=== PATIENT | male | born 1960 | race Caucasian/White ===

== ENCOUNTER → 2020-04-14 09:43 | Outpatient (CLI) | payer BC, SELFPAY ==
--- NOTE | ~2020-04-14 | XR_ITS ---
EXAMINATION: XR chest 2V 04/14/2020 09:58 INDICATION: Shortness of breath with exertion PROCEDURE: 2 view chest COMPARISON: No prior studies for comparison. FINDINGS: The lungs are clear. The cardiomediastinal silhouette is within normal limits. There are no pleural effusions. There is no pneumothorax suspected. IMPRESSION: 1: NO ACUTE CARDIOPULMONARY DISEASE. Reviewed, dictated and finalized at location A. BREAKER
== END ==
PROVIDERS: Visit Provider Pediatrics
DX: R06.02 Shortness of breath (principal)
CPT/HCPCS: 71046

== ENCOUNTER 2020-05-03 00:28 | Outpatient (CLI) | payer BC, SELFPAY ==
[2020-05-03 18:26] LABS: SARS-CoV-2 RNA PCR Negative
== END 2020-05-03 00:29 | disposition home or self-care (01) ==
LOC: ANHCOVIDDT 00:28
PROVIDERS: PCP Pediatrics; Visit Provider Surgery
DX: Z01.812 Encounter for preprocedural laboratory examination (principal); Z20.822 Contact with and (suspected) exposure to COVID-19; K42.9 Umbilical hernia without obstruction or gangrene
CPT/HCPCS: C9803; U0003; U0005

== ENCOUNTER 2020-05-06 00:39 | Day surgery (SDC) | payer BC, SELFPAY ==
[2020-04-28 14:22] VITALS: BMI 26.6
--- NOTE | 2020-05-06 08:01 | WPDHPUPDATE1 ---
History and Physical Update Update Date/Time: 05/06/20 08:01 History and Physical has been reviewed, including an updated exam of the patient. There are NO changes in the patient's condition. Risks, benefits, and alternatives have been discussed and questions answered. Patient agrees to proceed with procedure.
[2020-05-06] MEDS: LACTATED RINGERS 1,000 ML 30 ML IV CONT ×2 (09:30→12:55)
[2020-05-06] MEDS: KETOROLAC 15 MG/ML VIAL (*BKC) IV PUSH (09:58)
--- NOTE | 2020-05-06 10:51 | P.PNAN_ITS ---
Anes - Initial Pre Proc Eval Procedure: Operation Date: 05/06/20 10:30 Proposed Procedures p Umbilical Hernia Repair With Mesh - Maged Dickinson MD Date/Time: 05/06/20 10:51 Surgeon: Maged Dickinson MD Pre Op Diagnosis: Umbilical Hernia Patient Data Age: 59 Gender: M Height: 5 ft 6 in Weight: 75 kg Allergies Allergy/AdvReac Type Severity Reaction Status Date / Time Penicillins Allergy Unknown Hives Verified 04/28/20 14:27 Home Medications Medication Instructions Recorded Confirmed Type ascorbate calcium (vitamin C) 500 1,000 mg PO DAILY 04/20/20 05/06/20 History mg tablet famotidine 20 mg tablet 20 mg PO BID 04/20/20 05/06/20 History omega-3 fatty acids 1,000 mg 1,000 mg PO DAILY 04/20/20 05/06/20 History capsule calcium 500 mg PO DAILY 04/28/20 05/06/20 History cholecalciferol (vitamin D3) 100 mcg PO DAILY 04/28/20 05/06/20 History [Vitamin D3] Patient hx anesthesia problems: none Family hx anesthesia problems: none [facility] Past Medical History Medical History (Updated 04/22/20 @ 08:47 by July Cronin) GERD (gastroesophageal reflux disease) Surgical History Surgical History History of inguinal hernia repair, bilateral History of tonsillectomy Family History Family History Grandparent Diabetes mellitus Other Carcinoma of colon Social History Social History Smoking status: Never smoker Alcohol intake: current Living arrangements: with family Additional occupation/education comments: [employer] Spiritual care concerns: No Anes - Eval Final PreProcedure Day of Procedure 05/06/20 10:51 Patient weight: normal Heart: regular rate and rhythm Lungs: clear to auscultation Airway: Mallampati scale class II Neurological: alert and oriented Last oral intake: >/= 8 hours ASA classification: II Emergent: no Anesthetic plan: proceed Anesthesia type and monitoring: general GIVS and standard monitoring Informed Consent: The patient's anesthetic plan and its attendant risks and benefits were discussed with the patient/family/POA. Questions were solicited and answers provided to the satisfaction of the patient/family/POA.
[2020-05-06] MEDS: ACETAMINOPHEN 500 MG TABLET 1000 MG PO (10:55)
[2020-05-06] MEDS: ceFAZolin 2 GM/D5W 50 ML 2 GM/50 ML BAG IVPB (12:00)
--- NOTE | 2020-05-06 12:24 | SUR.OPER ---
Parietex Mesh [id number], Lot [id number], Exp 2024-11-06 Umbilical
[2020-05-06 12:55] VITALS: BP 124/85; PULSE 63; RESP 10
--- NOTE | 2020-05-06 13:22 | PM.PROC ---
Procedure Note - Detailed Date of procedure: 05/06/20 Pre-op diagnosis: Umbilical Hernia Umbilical hernia Post-op diagnosis: same Procedure performed: Umbilical hernia repair with 4.6 cm Parietex underlay mesh Description of procedure: Patient was taken to the operating room and IV sedation was administered. Prep and drape was carried out. The proposed incision along the upper margin of the umbilicus was marked on the skin. Local anesthetic was infiltrated into the skin and the deeper subcutaneous tissues. Incision was made and dissection was carried down through the skin and to the hernia sac. The sac was then dissected free from the umbilical skin and the surrounding subcutaneous tissues. It was dissected down to its neck. Additional local anesthetic was infiltrated into the neck and the fascia surrounding the neck of the hernia sac. The sac was then amputated at its neck. The subcutaneous was undermined around the hernia defect. Additional local was infiltrated around the fascia. I placed a finger inside the hernia defect and checked for any abdominal wall adhesions in the area. None were found. No other hernias were noted. A 4.6 cm Parietex apache was chosen. It was folded and placed in the defect. Once it symmetrically covered the defect, I placed cranial and caudal transfascial sutures of 0 Ethibond. These sutures were placed in such a fashion that, when tied, they would advance the edges of the hernia defect towards 1 another. These sutures were tied and had the desired effect. I then closed the hernia defect with [id number] mattress sutures of 0 Ethibond. The repair looked quite satisfactory. I then infiltrated additional local all around the areas of the repair. The umbilical skin was tacked to the fascia with 3 0 Vicryl suture. The subcutaneous was closed with 3 0 Vicryl. Subcuticular interrupted 4 O Vicryl skin stitches were placed. The skin was then closed with running 4 0 Monocryl subcuticular suture. Wound was dressed with Exofin surgical adhesive. The patient was awakened and taken to recovery in good condition. Counts were correct x2. Implants: 4.6 cm Parietex hernia mesh Anesthesia: MAC and local (0.5% Marcaine with Exparel) Surgeon: Maged Dickinson MD Learning Center Instructor: Dennise MADERA Estimated blood loss (mL): 5 Drains: No Packing: No Pathology: none sent Complications: None Condition: stable Disposition: same day Findings: 9 millimeter hernia defect
[2020-05-06 13:25] VITALS: BP 108/76; PULSE 57; RESP 14
[2020-05-06 13:55] VITALS: BP 108/76; PULSE 55; RESP 14
[2020-05-06 14:20] VITALS: BP 120/72; PULSE 50; RESP 16
[2020-05-06 14:48] VITALS: BP 120/72; PULSE 50; RESP 16
== END 2020-05-06 15:00 | disposition home or self-care (01) ==
PROVIDERS: PCP Pediatrics; Visit Provider Surgery
PROC: (CPT 49585; principal; 2020-05-06 10:30)
DX: K42.9 Umbilical hernia without obstruction or gangrene (principal); K21.9 Gastro-esophageal reflux disease without esophagitis
CPT/HCPCS: 49585; A9270; C1781; C9290; J0690; J1100; J1885; J2250; J2405; J2704; J3010; J7120

== ENCOUNTER 2020-05-22 17:43 | Inpatient (IN) | payer BC, SELFPAY ==
--- NOTE | ~2020-05-22 | XR_ITS ---
XR abdomen/kub 1V DATE: 05/24/2020 08:15 INDICATION: Abdominal pain, no bowel movements. TECHNIQUE: Portable supine AP view COMPARISON: May 23, 2020 portable AP view at 0749 hours May 22, 2020 CT abdomen pelvis FINDINGS: There is diminished small bowel gas and no evidence of small or large bowel dilatation sinc e 05/23/2020. NG tube in gastric fundus. The psoas shadows are intact. No visceromegaly is evident. Postoperative change of reported left inguinal hernia repair. Several bone islands of the right ilium and acetabulum. IMPRESSION: NG tube in gastric fundus; no bowel obstruction is evident Reviewed, dictated and finalized at Location A. Reviewed, dictated and finalized at location A. OVEMENT ANALYST
--- NOTE | ~2020-05-22 | XR_ITS ---
EXAMINATION: XR UGI water soluble w sbs DATE: 05/24/2020 10:53 INDICATION: Small bowel obstruction TECHNIQUE: 400 cc of Omnipaque 350 water-soluble contrast was injected through the nasogastric tube.. Conventional supine abdomen radiographs and fluoroscopy of the stomach and small bowel were performe d. Fluoroscopy exposure time was 1.7 minutes. The DAP for this procedure was 40.505 Gycm2. COMPARISON: CT, 05/22/2020; 05/24/2020 FINDINGS: UPPER GASTROINTESTINAL SERIES: There is no identified hiatal hernia. The stomach shows a normal folding pattern.] SMALL BOWEL SERIES: Transit time from the stomach to proximal colon was approximately 45 minutes. There is normal caliber and mucosal fold pattern throughout the small bowel. Terminal ileum is normal. No tethering or abnor mal mass effect observed upon the small bowel with real-time fluoroscopy. IMPRESSION: 1. Unremarkable upper GI and small bowel follow-through. Reviewed, dictated and finalized at location A. ING CARHOP
--- NOTE | ~2020-05-22 | XR_ITS ---
EXAMINATION: XR abdomen NG/feed tube insert DATE: 05/22/2020 21:35 INDICATION: Nasogastric tube placement TECHNIQUE: A supine view of the abdomen and lower chest was obtained for evaluation of feeding tube placement. COMPARISON: None. FINDINGS: Nasogastric tube tip in proximal side port in the body of the stomach. Again seen are multiple dilate d gas-filled loops of small bowel project over the central abdomen consistent with small bowel obstru ction. Mild left basilar atelectasis. IMPRESSION: 1. Nasogastric tube in the stomach. 2. Small bowel obstruction. Reviewed, dictated and finalized at location A. HEEL FINISHER
--- NOTE | ~2020-05-22 | XR_ITS ---
XR abdomen/kub 1V DATE: 05/23/2020 07:48 INDICATION: Small bowel obstruction TECHNIQUE: Portable supine AP view on May 23, 2020 at 0749 hours COMPARISON: May 22, 2020 portable AP view at 2138 hours for NG tube placement May 22, [address] abdomen pelvis FINDINGS: There is radiopaque contrast material within the urinary bladder. An NG tube is noted in the gastric fundus. No dilated small or large bowel segments are noted. The psoas shadows are intact. No visceromegaly is evident. Surgical clips related to prior left inguinal hernia repair are noted. IMPRESSION: No small bowel abnormal dilatation is evident NG tube in gastric fundus Reviewed, dictated and finalized at Location A. Reviewed, dictated and finalized at location A. MECHANIC
--- NOTE | ~2020-05-22 | CT_ITS ---
EXAMINATION: CT abdomen pelvis w con DATE: 05/22/2020 20:18 INDICATION: Mid abdominal pain. Hernia repair one week prior. TECHNIQUE: Computed tomography (CT) of the abdomen and pelvis was performed with 100 mL Omnipaque-350 intravenous contrast. Automated exposure control and iterative reconstruction technique were employe d. The dose-length product was 387.26 mGy-cm. COMPARISON: None FINDINGS: Mild dependent atelectasis in the bilateral lower lobes. Heart size is normal. No pericardial or pleu ral effusion. Couple low-attenuation hepatic lesions, the larger measuring 2.4 cm at the posterior me dial dome of liver near the inferior vena cava. The second measuring 1.4 cm near the ligamentum teres . Gallbladder, spleen, pancreas, bilateral adrenal glands and kidneys are normal. There are multiple loops of dilated fluid-filled loops of small bowel measuring up to 3.5 cm diameter which extend to an abrupt transition point to decompressed bowel in the left abdomen where the bowel undergoes a sharp 180 degree turn. This is located on axial series 3, image 96 and sagittal series 602, image 100. The more distal small bowel is decompressed extending to the cecum. Colon and appendix are normal. Small amount of ascites scattered throughout the abdomen and pelvis. Prostatomegaly. Bladder is unremarkabl e. No abscess or free intraperitoneal gas. Edema and stranding in the region of the umbilicus where c hange of a likely recent umbilical hernia mesh repair. Additional likely more chronic postoperative c hanges of left inguinal hernia repair with mesh and multiple surgical clips but no significant strand ing. Small fat-containing right inguinal hernia. No pathologically enlarged abdominal or pelvic lymph adenopathy. Mild disc height loss with vacuum phenomena at L5-S1 with 3 mm retrolisthesis of L5 on S1 . A few small bone islands in the lower lumbar spine, right ilium and bilateral femoral heads. IMPRESSION: 1. Small bowel obstruction likely related to adhesions with transition point at a sharp angulation in the course of the small bowel mid left abdomen. 2. Postoperative change of likely recent umbilical hernia mesh repair and likely earlier left inguina l hernia mesh repair. 3. Couple nonspecific low-attenuation hepatic lesions the larger measuring 2.4 cm which in the absenc e of known liver disease or primary malignancy or likely benign with most likely differential includi ng hemangioma or focal nodular hyperplasia. Recommend further evaluation with pre and postcontrast MR I. 4. Small amount of likely reactive ascites in the abdomen and pelvis. 5. Prostatomegaly. Reviewed, dictated and finalized at location A. N CLERK IMPRESSION: 1. Small bowel obstruction likely related to adhesions with transition point at a sharp angulation in the course of the small bowel mid left abdomen. 2. Postoperative change of likely recent umbilical hernia mesh repair and likel y earlier left inguinal hernia mesh repair. 3. Couple nonspecific low-attenuation hepatic lesions the larger measuring 2.4 cm which in the absence of known liver disease or primary malignancy or likely benign with most likely differential including hemangioma or focal nodular hype rplasia. Recommend further evaluation with pre and postcontrast MRI. 4. Small amount of likely reactive ascites in the abdomen and pelvis. 5. Prostatomegaly.
[2020-05-22 17:47] VITALS: BP 138/91; PULSE 88; RESP 18; TEMP 36.6; O2SAT 99
[2020-05-22] MEDS: ONDANSETRON INJ 4 MG/2 ML VIAL IV PUSH (18:58)
[2020-05-22] MEDS: FAMOTIDINE 20 MG/2 ML VIAL IV PUSH (18:59)
[2020-05-22] MEDS: MORPHINE SULFATE (*CRX) 4 MG/ML INJ IV PUSH ×2 (19:00→21:17)
[2020-05-22] MEDS: SODIUM CHLORIDE 0.9% IV 1,000 ML 999 ML IV CONT (19:00)
--- NOTE | 2020-05-22 19:02 | ED.GENADULT ---
HPI - General Adult General Chief complaint: Abdominal Pain <Pablo Magallon PA-C - Last Filed: 05/22/20 21:40> Stated complaint: abdominal pain <Pablo Magallon PA-C - Last Filed: 05/22/20 21:40> Time Seen by Provider: 05/22/20 18:03 <Pablo Magallon PA-C - Last Filed: 05/22/20 21:40> Source: patient, family and old records reviewed <Pablo Magallon PA-C - Last Filed: 05/22/20 21:40> Mode of arrival: ambulatory <Pablo Magallon PA-C - Last Filed: 05/22/20 21:40> Limitations: no limitations <Pablo Magallon PA-C - Last Filed: 05/22/20 21:40> History of Present Illness HPI narrative: Patient is a 59-year-old male who presents to emergency department for evaluation of abdominal pain in the upper abdomen that began today patient had dinner last night has been fine is 2 weeks umbilical hernia repair by Dr. Dickinson Patient Has Seen Doctor , Sunday and had been fine at that time but this morning began to have the pain which has persisted also had associated nausea and feels distended patient notes he has been having bowel movements and urinating without difficulty and denies any URI symptoms <Pablo Magallon PA-C - Last Filed: 05/22/20 21:40> Related Data Home medications: Home Medications Medication Instructions Recorded Confirmed ascorbate calcium (vitamin C) 500 1,000 mg PO DAILY 04/20/20 05/22/20 mg tablet famotidine 20 mg tablet 20 mg PO BID 04/20/20 05/22/20 omega-3 fatty acids 1,000 mg 1,000 mg PO DAILY 04/20/20 05/22/20 capsule calcium 500 mg PO DAILY 04/28/20 05/22/20 cholecalciferol (vitamin D3) 100 mcg PO DAILY 04/28/20 05/22/20 [Vitamin D3] aspirin 81 mg PO DAILY 05/22/20 05/22/20 <SÁNCHEZ Stephenson Last Filed: 05/22/20 21:40> Allergies/adverse reactions: Allergies Allergy/AdvReac Type Severity Reaction Status Date / Time Penicillins Allergy Unknown Hives Verified 05/22/20 23:19 <Pablo Magallon PA-C - Last Filed: 05/22/20 21:40> Review of Systems Review of Systems: All systems reviewed & are unremarkable except as noted in HPI and below <Pablo Magallon PA-C - Last Filed: 05/22/20 21:40> PMFSH Past Medical History Medical History: Medical History GERD (gastroesophageal reflux disease) <Pablo Magallon PA-C - Last Filed: 05/22/20 21:40> Surgical History Surgical History: Surgical History H/O umbilical hernia repair History of inguinal hernia repair, bilateral History of tonsillectomy <Pablo Magallon PA-C - Last Filed: 05/22/20 21:40> Family History Family History: Family History Grandparent Diabetes mellitus Other Carcinoma of colon <Pablo Magallon PA-C - Last Filed: 05/22/20 21:40> Social History Social History: Social History Smoking status: Never smoker Alcohol intake: current Drinks per week: 0 Substance use: never Substance use type: does not use Last use: drinks very rarely Additional occupation/education comments: [employer] Gender identity (if verbalized by the patient): Male Spiritual care concerns: No <Pablo Magallon PA-C - Last Filed: 05/22/20 21:40> Exam Narrative: Exam Narrative: GENERAL: Well-appearing, well-nourished, and in no acute distress. HEAD: Normocephalic, atraumatic. EYES: PERRLA and EOMI. ENT: Nares clear, no rhinorrhea or epistaxis. Mucous membranes moist. CHEST: Clear to auscultation. No respiratory distress. No wheezes rales or rhonchi HEART: Regular rate and rhythm. No murmur heard. Normal peripheral pulses. ABDOMEN: Soft, generalized tenderness, distended EXTREMITIES: Normal range of motion. No edema. SKIN: Warm, dry, no rash. NEURO: No focal deficits. Alert and oriented x3. Cranial nerves
[2020-05-22 19:04] VITALS: BP 130/84; PULSE 80; RESP 20; O2SAT 97
[2020-05-22 19:12] LABS: Basophils Absolute Auto 0.1 K/mm3 (0.0-0.1); Basophils Percent Auto 0.5 % (0.2-1.2); Eosinophils Absolute Auto 0.2 K/mm3 (0-0.3); Eosinophils Percent Auto 1.2 % (0-4.4); Hematocrit 45.2 % (42.0-52.0); Immature Granulocyte Absolute 0.05 K/mm3 (0.00-0.031); Immature Granulocyte Percent A 0.4 % (0-0.5); Lymphocytes Absolute Auto 1.27 K/mm3 (0.9-3.2); Lymphocytes Percent Auto 9.8 % (18.3-44.2); Mean Corpuscular HGB Conc 35.4 g/dl (32-36); Mean Corpuscular Hemoglobin 32.7 pg (26-34); Mean Corpuscular Volume 92.2 fl (80-100); Mean Platelet Volume 10.2 fl (7.4-10.4); Monocytes Absolute Auto 0.9 K/mm3 (0.1-0.6); Neutrophils Absolute Auto 10.5 K/mm3 (1.3-6.7); Neutrophils Percent Auto 81.1 % (45.5-73.1); Platelet Count Result 247 k/mm3 (150-375); Red Cell Distribution Width 12.2 % (11.5-14.5)
[2020-05-22 19:23] LABS: Lactic Acid Reflex 0.9 mmol/L (0.7-2.1)
[2020-05-22 19:24] LABS: Alanine Aminotransferase 23 U/L (4-50); Albumin Level 4.2 g/dL (3.5-5.1); Alkaline Phosphatase 77 U/L (38-126); Anion Gap 5 mmol/L (8-16); Aspartate Amino Transferase 29 U/L (17-59); Bilirubin,Total 0.6 mg/dL (0.2-1.3); Blood Urea Nitrogen 15 mg/dL (9-20); Calcium 9.9 mg/dL (8.4-10.2); Carbon Dioxide 30 mmol/L (22-30); Chloride 104 mmol/L (98-107); Estimated CRCL calculation 53 ml/min; Estimated Glomerular Filt Rate > 60; Glucose 102 mg/dL (75-110); Lipase 48 U/L (23-300); Sodium 139 mmol/L (137-145)
[2020-05-22 19:43] LABS: Add Urine Microscopic? YES; Amorphous Sediment Urine Moderate; Appearance Urine Cloudy (Clear); Bilirubin Urine Negative (Negative); Blood Urine Negative (Negative); Color Urine Yellow (Yellow); Glucose Urine UA Negative (Negative); Ketones Urine Trace mg/dL (Negative); Leukocyte Esterase Ur Negative LEU/UL (Negative); Nitrate Urine Negative (Negative); Protein Urine 1+ mg/dL (Negative); RBC Urine 0-2 /hpf (0-2); Specific Grav Ur 1.019 (1.001-1.035); Urobilinogen Urine Negative mg/dL (<2.0)
[2020-05-22] MEDS: LORazepam INJ (*CRX) 2 MG/ML VIAL 1 MG IV PUSH (21:29)
[2020-05-22 21:32] VITALS: BP 132/94; PULSE 108; RESP 20; O2SAT 96
[2020-05-22 23:01] VITALS: BP 124/78; PULSE 98; RESP 20; TEMP 36.7; O2SAT 96
[2020-05-22 23:13] VITALS: BP 120/81; PULSE 103; RESP 18; TEMP 36.8; O2SAT 93; BMI 25.7
[2020-05-22] MEDS: LACTATED RINGERS 1,000 ML 125 ML IV CONT (23:25)
--- NOTE | 2020-05-22 23:29 | ADMGEN ---
This patient, Zay Fisher, was admitted to 2 Medical Room 246-01 @ 2300 05/22/2020. Patient/family oriented to hospital policies and general routines including ID bracelet, bed and alarms, visiting hours, pain management, procedures, bathroom and other care routines, personal items, smoking policy, room service/diet, and visiting hours. Information on how to activate the Rapid Response Team has been discussed. Patient/Family are encouraged to report perceived risks to care and to ask questions if they do not understand what they are told or what they should do.
[2020-05-23 04:00] VITALS: BP 123/79; PULSE 93; RESP 16; TEMP 36.6; O2SAT 95
[2020-05-23 05:04] LABS: Basophils Absolute Auto 0.1 K/mm3 (0.0-0.1); Basophils Percent Auto 0.4 % (0.2-1.2); Eosinophils Absolute Auto 0.1 K/mm3 (0-0.3); Eosinophils Percent Auto 0.5 % (0-4.4); Hematocrit 41.1 % (42.0-52.0); Hemoglobin 14.2 g/dL (14.0-18.0); Immature Granulocyte Absolute 0.04 K/mm3 (0.00-0.031); Immature Granulocyte Percent A 0.3 % (0-0.5); Lymphocytes Absolute Auto 1.15 K/mm3 (0.9-3.2); Lymphocytes Percent Auto 9.9 % (18.3-44.2); Mean Corpuscular HGB Conc 34.5 g/dl (32-36); Mean Corpuscular Hemoglobin 31.9 pg (26-34); Mean Corpuscular Volume 92.4 fl (80-100); Mean Platelet Volume 10.1 fl (7.4-10.4); Monocytes Absolute Auto 0.8 K/mm3 (0.1-0.6); Monocytes Percent Auto 7.3 % (2.6-8.5); Neutrophils Absolute Auto 9.4 K/mm3 (1.3-6.7); Neutrophils Percent Auto 81.6 % (45.5-73.1); Platelet Count Result 243 k/mm3 (150-375); Red Blood Count 4.45 M/mm3 (4.6-6.20); Red Cell Distribution Width 12.1 % (11.5-14.5); White Blood Count 11.6 K/mm3 (4.5-10.0)
[2020-05-23 05:16] LABS: Anion Gap 4 mmol/L (8-16); Blood Urea Nitrogen 14 mg/dL (9-20); Calcium 9.3 mg/dL (8.4-10.2); Carbon Dioxide 30 mmol/L (22-30); Chloride 105 mmol/L (98-107); Estimated CRCL calculation 53 ml/min; Estimated Glomerular Filt Rate > 60; Glucose 122 mg/dL (75-110); Potassium 4.5 mmol/L (3.4-5.0); Sodium 139 mmol/L (137-145)
[2020-05-23] MEDS: MORPHINE SULFATE (*CRX) 4 MG/ML INJ IV PUSH (05:54)
[2020-05-23 09:56] VITALS: BP 122/80; PULSE 92; RESP 14; TEMP 36.4; O2SAT 94
[2020-05-23] MEDS: ENOXAPARIN 40 MG/0.4 ML SYRINGE SUB-Q (09:58)
[2020-05-23] MEDS: FAMOTIDINE 20 MG/2 ML VIAL IV PUSH ×2 (09:58→20:40)
[2020-05-23] MEDS: LACTATED RINGERS 1,000 ML 125 ML IV CONT ×2 (09:58→17:51)
[2020-05-23] MEDS: KETOROLAC 30 MG/ML VIAL (*BKC) IV PUSH (10:15)
--- NOTE | 2020-05-23 10:23 | PM.IMHP ---
H&P: HPI History of Present Illness Date/Time: 05/23/20 10:23 Chief Complaint: abdominal pain and nausea Narrative: Zay Fisher is a 59 year old male whom I know from repair of umbilical hernia on May 06, 2020. This was an outpatient surgery and the hernia was repaired with 4.6 cm Parietex underlay mesh. The patient did well after surgery and in fact, I had seen him in the office on May 18, 4 days ago. He was doing quite well at is office visit. However, after dinner night before last, he started experiencing abdominal pain in the upper abdomen. This got worse yesterday and was associated with nausea and a feeling of abdominal distension. He came to the emergency room last night. Evaluation there showed a distended tender abdomen. He had an elevated white blood cell count. His vital signs were stable and he had no fever. His CT scan, however, showed a small-bowel obstruction. The transition point was in the left mid abdomen and did not appear to be associated with his hernia repair. He had a nasogastric tube placed and was admitted. He received IV fluids and analgesics. He feels much better this morning. He has a headache and a sore throat, but his abdominal pain is gone. Review of Systems Review of Systems: All systems reviewed & are unremarkable except as noted in HPI and below Constitutional: Constitutional: Denies body ache(s), Denies chills, Denies fever(s) and Reports headache(s) ENT: Reports dry mouth, Reports headache(s) and Reports sore throat Cardiovascular: Cardiovascular: Denies chest pain and Denies dyspnea Respiratory: Respiratory: Denies cough and Denies dyspnea Gastrointestinal: Gastrointestinal: Reports abdominal pain ( Improved, essentially resolved), Denies change in bowel habits, Reports GI cramping ( improved), Reports early satiety, Reports nausea and Denies vomiting PMFSH Past Medical History Medical History GERD (gastroesophageal reflux disease) Surgical History Surgical History H/O umbilical hernia repair History of inguinal hernia repair, bilateral History of tonsillectomy Family History Family History Grandparent Diabetes mellitus Other Carcinoma of colon Social History Social History Smoking status: Never smoker Alcohol intake: current Drinks per week: 0 Substance use: never Substance use type: does not use Last use: drinks very rarely Additional occupation/education comments: [employer] Gender identity (if verbalized by the patient): Male Spiritual care concerns: No Meds Home Medications and Allergies Home Medications Medication Instructions Recorded Confirmed Type ascorbate calcium (vitamin C) 500 1,000 mg PO DAILY 04/20/20 05/22/20 History mg tablet famotidine 20 mg tablet 20 mg PO BID 04/20/20 05/22/20 History omega-3 fatty acids 1,000 mg 1,000 mg PO DAILY 04/20/20 05/22/20 History capsule calcium 500 mg PO DAILY 04/28/20 05/22/20 History cholecalciferol (vitamin D3) 100 mcg PO DAILY 04/28/20 05/22/20 History [Vitamin D3] aspirin 81 mg PO DAILY 05/22/20 05/22/20 History Allergies Allergy/AdvReac Type Severity Reaction Status Date / Time Penicillins Allergy Unknown Hives Verified 05/22/20 23:19 Vital Signs Vital Signs - 24 hr 05/22/20 17:47 05/22/20 19:04 05/22/20 21:32 Temperature 36.6 C Pulse Rate 88 80 108 H Respiratory Rate 18 20 20 Blood Pressure 138/91 H 130/84 132/94 H Pulse Oximetry 99 97 96 05/22/20 23:01 05/22/20 23:13 05/23/20 04:00 Temperature 36.7 C 36.8 C 36.6 C Pulse Rate 98 103 H 93 Respiratory Rate 20 18 16 Blood Pressure 124/78 120/81 123/79 Pulse Oximetry 96 93 95 05/23/20 09:56 Temperature 36.4 C Pulse Rate 92 Respiratory Rate 14 Blood Pressure 122/80
[2020-05-23 14:00] VITALS: BP 135/77; PULSE 89; RESP 14; TEMP 36.2; O2SAT 92
[2020-05-23 20:00] VITALS: PULSE 89; RESP 14; O2SAT 92
[2020-05-23] MEDS: PHENOL/SOD PHENO SPRAY CHERRY (*BKC) 1 SPRAY MUCOUS MEM (20:40)
[2020-05-23 22:00] VITALS: BP 137/81; PULSE 83; RESP 16; TEMP 36.7; O2SAT 95
[2020-05-24 01:51] VITALS: BP 143/82; PULSE 81; RESP 16; TEMP 36.4; O2SAT 92
[2020-05-24] MEDS: LACTATED RINGERS 1,000 ML 125 ML IV CONT (02:00)
[2020-05-24 05:41] LABS: Hematocrit 38.4 % (42.0-52.0); Hemoglobin 13.3 g/dL (14.0-18.0); Mean Corpuscular HGB Conc 34.6 g/dl (32-36); Mean Corpuscular Hemoglobin 31.8 pg (26-34); Mean Corpuscular Volume 91.9 fl (80-100); Mean Platelet Volume 10.5 fl (7.4-10.4); Platelet Count Result 190 k/mm3 (150-375); Red Blood Count 4.18 M/mm3 (4.6-6.20); Red Cell Distribution Width 11.9 % (11.5-14.5); White Blood Count 9.7 K/mm3 (4.5-10.0)
[2020-05-24 05:46] VITALS: BP 140/78; PULSE 80; RESP 16; TEMP 36.8; O2SAT 93
[2020-05-24 06:12] LABS: Chloride 104 mmol/L (98-107); Potassium 3.4 mmol/L (3.4-5.0); Sodium 138 mmol/L (137-145)
[2020-05-24 06:17] LABS: Anion Gap 3 mmol/L (8-16); Blood Urea Nitrogen 13 mg/dL (9-20); Calcium 8.5 mg/dL (8.4-10.2); Carbon Dioxide 31 mmol/L (22-30); Estimated CRCL calculation 53 ml/min; Estimated Glomerular Filt Rate > 60; Glucose 90 mg/dL (75-110)
[2020-05-24] MEDS: KCL 40 MEQ/D5/0.9% SOD CHL 1,000 ML 100 ML IV CONT (08:47)
[2020-05-24] MEDS: FAMOTIDINE 20 MG/2 ML VIAL IV PUSH (08:48)
[2020-05-24] MEDS: ENOXAPARIN 40 MG/0.4 ML SYRINGE SUB-Q (08:48)
--- NOTE | 2020-05-24 08:48 | PM.PNGS ---
Progress Note: A&P Assessment and Plan (1) Small bowel obstruction due to adhesions: Code(s): K56.50 - Intestinal adhesions [bands], unspecified as to partial versus complete obstruction Status: Acute Assessment and Plan: No pain again this morning. Abdomen feels flat and exam is negative. Will proceed with Gastrografin upper GI small-bowel follow-through as planned. (2) Headache: Qualifiers: Headache type: unspecified Headache chronicity pattern: acute headache Intractability: not intractable Qualified Code(s): R51.9 - Headache, unspecified Code(s): R51.9 - Headache, unspecified Status: Acute Assessment and Plan: Resolved (3) H/O umbilical hernia repair: Code(s): Z98.890 - Other specified postprocedural states; Z87.19 - Personal history of other diseases of the digestive system Status: Acute Assessment and Plan: repair intact. Subjective Subjective Date/Time Seen: 05/24/20 08:48 Patient reports: no new complaints, feels better, pain is less, no flatus and no bowel movement Review of Systems Review of Systems: All systems reviewed & are unremarkable except as noted in HPI and below Constitutional: Constitutional: Denies headache(s) Cardiovascular: Cardiovascular: Denies chest pain and Denies dyspnea Respiratory: Respiratory: Denies cough and Denies dyspnea Gastrointestinal: Gastrointestinal: Reports as per HPI, Denies abdominal pain, Denies bloating, Denies heartburn and Denies nausea Neurologic: Denies confusion and Denies headache(s) Exam Const: General: comfortable and no acute distress; No confusion Orientation/consciousness: patient oriented x3 and No confusion GI: Inspection: non-distended and incision ( Continues to heal well) GI Palp: Yes Soft to palpation, No Tenderness to palpation present (GI), No Guarding due to palpation present (GI), No Hernia present, No Palpable mass present and No Rebound tenderness present Auscultation: normal bowel sounds Neuro: General: patient oriented x3, no focal motor deficits and No confusion Extrem: General: no calf tenderness and no edema Psych: Affect: normal affect Insight: Good insight present (Psych) Judgement: Good judgement present (Psych) Objective Data Vital Signs Vital Signs: Vital Signs - 24 hr 05/23/20 09:56 05/23/20 14:00 05/23/20 20:00 Temperature 36.4 C 36.2 C L Pulse Rate 92 89 89 Respiratory Rate 14 14 14 Blood Pressure 122/80 135/77 Pulse Oximetry 94 92 92 05/23/20 22:00 05/24/20 01:51 05/24/20 05:46 Temperature 36.7 C 36.4 C 36.8 C Pulse Rate 83 81 80 Respiratory Rate 16 16 16 Blood Pressure 137/81 143/82 H 140/78 Pulse Oximetry 95 92 93 Intake/Output Intake/Output: Intake & Output 05/21/20 05/22/20 05/23/20 05/24/20 23:59 23:59 23:59 23:59 Intake Total 1000 2009 1359 Output Total 1400 825 Balance 1000 610 535 Meds/Results Medications: Active Medications Generic Name Dose Route Start Last Admin Trade Name Freq PRN Reason Stop Dose Admin Diphenhydramine HCl 25 mg 05/23/20 10:20 Diphenhydramine Hcl Inj 50 Mg/Ml Vial IV PUSH Q6H PRN Itching Enoxaparin Sodium 40 mg 05/23/20 09:00 05/24/20 08:48 Enoxaparin 40 Mg/0.4 Ml Syringe SUB-Q 40 mg DAILY ALLYSON Administration Famotidine 20 mg 05/23/20 09:00 05/24/20 08:48 Famotidine 20 Mg/2 Ml Vial IV PUSH 20 mg Q12HR ALLYSON Administration Ibuprofen 800 mg in 200 mls @ 400 mls/hr 05/23/20 10:20 Caldolor 800 Mg/200 Ml IVPB Q6H PRN Pain Rated 1-3 Potassium Chloride/Dextrose/Sod Cl 1,000 mls @ 100 mls/hr 05/24/20 07:45 05/24/20 08:47 Kcl 40 Meq/D5ns IV CONT 100 mls/hr .Q10H ALLYSON Administration Morphine Sulfate 4 mg 05/22/20 21:06 05/23/20 05:54 Morphine Sulfate (*Crx) 4 Mg/Ml Inj IV PUSH 4 mg Q2H PRN Administration Pain Rated 7-10 Morphine Sulfate 2 mg 05/23/20 10:20 Morphine Sulfate (*Crx) 2 Mg/Ml Inj IV P
[2020-05-24 16:09] VITALS: BP 130/90; PULSE 79; RESP 16; TEMP 36.8; O2SAT 96
[2020-05-24 20:00] VITALS: PULSE 79; RESP 16; O2SAT 96
[2020-05-24] MEDS: FAMOTIDINE 20 MG TABLET PO (20:32)
[2020-05-24 22:00] VITALS: BP 117/86; PULSE 72; RESP 20; TEMP 36.9; O2SAT 98
[2020-05-25 05:04] VITALS: BP 120/82; PULSE 63; RESP 18; TEMP 36.5; O2SAT 94
[2020-05-25 05:41] LABS: Hematocrit 35.5 % (42.0-52.0); Hemoglobin 12.5 g/dL (14.0-18.0); Mean Corpuscular HGB Conc 35.2 g/dl (32-36); Mean Corpuscular Hemoglobin 32.2 pg (26-34); Mean Corpuscular Volume 91.5 fl (80-100); Mean Platelet Volume 10.2 fl (7.4-10.4); Platelet Count Result 186 k/mm3 (150-375); Red Blood Count 3.88 M/mm3 (4.6-6.20); Red Cell Distribution Width 11.9 % (11.5-14.5); White Blood Count 6.3 K/mm3 (4.5-10.0)
[2020-05-25 05:52] LABS: Potassium 3.6 mmol/L (3.4-5.0)
[2020-05-25 05:59] LABS: Anion Gap 2 mmol/L (8-16); Blood Urea Nitrogen 13 mg/dL (9-20); Calcium 8.2 mg/dL (8.4-10.2); Carbon Dioxide 30 mmol/L (22-30); Chloride 107 mmol/L (98-107); Estimated CRCL calculation 58 ml/min; Estimated Glomerular Filt Rate > 60; Glucose 89 mg/dL (75-110); Sodium 139 mmol/L (137-145)
[2020-05-25 08:48] VITALS: RESP 18; O2SAT 96
[2020-05-25] MEDS: FAMOTIDINE 20 MG TABLET PO (08:48)
[2020-05-25] MEDS: ENOXAPARIN 40 MG/0.4 ML SYRINGE SUB-Q (08:48)
--- NOTE | 2020-05-25 08:55 | PM.DS ---
DS: Admitting Diagnosis Admitting Diagnosis Admitting Diagnosis: Small-bowel obstruction History umbilical hernia repair DS: Discharge Diagnosis Discharge Diagnosis (1) Small bowel obstruction due to adhesions: Code(s): K56.50 - Intestinal adhesions [bands], unspecified as to partial versus complete obstruction Status: Acute (2) H/O umbilical hernia repair: Code(s): Z98.890 - Other specified postprocedural states; Z87.19 - Personal history of other diseases of the digestive system Status: Acute DS: Summary Hospital Course Hospital Course: Zay Fisher is a 59 year old male whom I know from repair of umbilical hernia on May 06, 2020. This was an outpatient surgery and the hernia was repaired with 4.6 cm Parietex underlay mesh. The patient did well after surgery and in fact, I had seen him in the office on May 18, 4 days ago. He was doing quite well at is office visit. However, after dinner night before last, he started experiencing abdominal pain in the upper abdomen. This got worse yesterday and was associated with nausea and a feeling of abdominal distension. He came to the emergency room at night May 22. Evaluation there showed a distended tender abdomen. He had an elevated white blood cell count. His vital signs were stable and he had no fever. His CT scan, however, showed a small-bowel obstruction. The transition point was in the left mid abdomen and did not appear to be associated with his hernia repair. He had a nasogastric tube placed and was admitted. He received IV fluids and analgesics. He felt better by the following morning. He had a headache which resolved with Toradol. His abdominal pain was gone. He was continued on NG suction. Yesterday morning, May 24, he no longer had any feelings of abdominal distention and pain remained resolved. He underwent a Gastrografin upper GI small-bowel follow-through. This showed a normal transit time and no evidence of small-bowel obstruction. His NG tube was removed and he was started on oral intake. He tolerated this well. He was feeling fine on May 25, the day of discharge. He was tolerating solid food and very comfortable. He was discharged in much improved condition. Time Spent with Patient Time attestation: Total time spent providing and/or coordinating discharge services: Exam GI: Inspection: non-distended and incision (Hernia repair wound healing well) GI Palp: No Soft to palpation, No Tenderness to palpation present (GI), No Hernia present and No Palpable mass present DS: Data Data Completed and Pending Labs on day of discharge: Labs from last 24 hours 05/25/20 05/25/20 05:03 05:03 WBC 6.3 RBC 3.88 L Hgb 12.5 L Hct 35.5 L MCV 91.5 MCH 32.2 MCHC 35.2 RDW 11.9 Plt Count 186 MPV 10.2 Sodium 139 Potassium 3.6 Chloride 107 Carbon Dioxide 30 Anion Gap 2 L BUN 13 Creatinine 1.10 Estim Creat Clear Calc 58 Estimated GFR > 60 Glucose 89 Calcium 8.2 L Discharge Plan Discharge Attending physician on discharge: Maged Dickinson Discharging Clinician: Maged Dickinson Anticipated Discharge Date/Time: 05/25/20 09:02 Patient Disposition: Home, Self-Care Activity: may shower, no straining and as tolerated Diet: as tolerated, regular and low fiber Wound Care Instructions: incision open to air Discharge Instructions: Ambulate 3-4 x per day and as tolerated. No lifting over 35- 40lbs. May bathe or shower. Stairs are OK. May drive a car tomorrow. Low fiber diet for a couple of days then regular diet. Patient Instructions: Antibiotic Form, Pain Management (DC), Bowel Obstruction (DC) Stand Alone Forms: General Discharge Information Follow-up/Referrals: Maged Dickinson MD [Physician] - Keep Reg. Scheduled Appt. Discharge Medications: Continued ascorbate calcium (vitamin C) 500 mg tablet 1,000 mg PO D
== END 2020-05-25 11:30 | disposition home or self-care (01) | DRG 390 ==
LOC: ANHED 21:13 → ANH2MED 21:21
PROVIDERS: Emergency Medicine Emergency Medical Services; Admitting Provider Surgery; Emergency Provider Emergency Medicine; PCP Pediatrics; Visit Provider Surgery
DX: K56.50 Intestinal adhesions [bands], unspecified as to partial versus complete obstruction (principal); R51.9 Headache, unspecified; Z28.21 Immunization not carried out because of patient refusal; Z98.890 Other specified postprocedural states; Z87.19 Personal history of other diseases of the digestive system
CPT/HCPCS: 36415; 74018; 74177; 74240; 74248; 80048; 80053; 81001; 83605; 83690; 85025; 85027; 96361; 96374; 96375; 99285; A9270; J1650; J1885; J2060; J2270; J2405; J3480; J7030; J7120; Q9967

== ENCOUNTER 2021-09-20 06:34 | Outpatient (CLI) | payer BC, SELFPAY ==
--- NOTE | ~2021-09-20 | CT_ITS ---
EXAMINATION: CTA chest PE protocol DATE: 09/20/2021 08:06 INDICATION: Pulmonary embolus in association with Covid 19 TECHNIQUE: Computed tomography angiography (CTA) of the chest was performed with 100 mL Omnipaque-350 intravenous contrast timed to evaluate the pulmonary arteries. Coronal maximum intensity projection 3D-reconstructions were created by the technologist. Automated exposure control and iterative reconst ruction technique were employed. Exam dose: 334.30 mGy-cm total exam DLP. COMPARISON: 04/14/2020 2 view chest FINDINGS: There is diagnostic contrast enhancement of the pulmonary arteries and no evidence of pulmo nary embolism. No thoracic aortic aneurysm or dissection. Normal heart size. No pericardial or pleural effusion. There is patchy infiltrate and/or fibrotic change with peripheral predominance, scattered throughout the lungs, involvement of all lobes. No hilar or mediastinal mass lesion or lymphadenopathy. Normal morphology of the adrenal glands. No suspicious osteolytic or osteoblastic lesions. IMPRESSION: No evidence of pulmonary embolism Extensive bilateral pulmonary infiltrate or fibrotic change with peripheral predominance, scattered t hroughout both lungs Reviewed, dictated and finalized at [facility]. Reviewed, dictated and finalized at [facility]. IMPRESSION: No evidence of pulmonary embolism Extensive bilateral pulmonary infiltrate or fibrotic change with peripheral pre dominance, scattered throughout both lungs
[2021-09-20 07:54] LABS: Anion Gap 5 mmol/L (8-16); Blood Urea Nitrogen 18 mg/dL (9-20); Calcium 9.2 mg/dL (8.4-10.2); Carbon Dioxide 27 mmol/L (22-30); Chloride 106 mmol/L (98-107); Estimated Glomerular Filt Rate 56; Glucose 98 mg/dL (65-110); Potassium 3.8 mmol/L (3.4-5.0); Sodium 138 mmol/L (137-145)
[2021-09-20 07:56] LABS: Estimated Glomerular Filt Rate 56
== END 2021-09-20 06:35 | disposition home or self-care (01) ==
PROVIDERS: PCP Family Medicine; Visit Provider Pediatrics
DX: U07.1 COVID-19 (principal); U09.9 Post COVID-19 condition, unspecified
CPT/HCPCS: 36415; 71275; 80048; Q9967

== ENCOUNTER → 2022-07-03 09:31 | Outpatient (CLI) | payer BC, SELFPAY ==
--- NOTE | ~2022-07-03 | MR_ITS ---
EXAMINATION: MR shoulder LT wo/w con DATE: 07/03/2022 10:32 INDICATION: Left shoulder pain. Mass in left axilla. TECHNIQUE: Magnetic resonance imaging (MRI) of the left shoulder was performed without and with 15 mL MultiHance intravenous contrast. COMPARISON: Chest CT 09/20/2021 FINDINGS: Coracoacromial arch: The acromion undersurface is curved in morphology with anterior hook (type III). There is moderate ac romioclavicular joint osteoarthritis including inferiorly directed osteophytes. There is a physiologi c volume of fluid in subacromial/subdeltoid bursa. Rotator cuff: There is mild supraspinatus and infraspinatus tendinopathy. Teres minor tendon is normal. Subscapular is tendon is normal. No tear. The rotator cuff muscle bellies are normal. Biceps tendon and glenoid labrum: Biceps tendon is in bicipital groove. Intra-articular biceps tendon is normal. There is a tear of gle noid labrum from 11:00 to 12:00 (SLAP tear). Fluid: There is no glenohumeral joint effusion. Bones/cartilage: Glenoid cartilage is normal. Humeral head cartilage is normal. There is a skin marker anterior to the axilla. There is no abnormal mass in this area. IMPRESSION: 1. Mild rotator cuff tendinopathy. No tear. 2. SLAP tear. 3. Moderate acromioclavicular joint osteoarthritis. 4. No abnormal mass in the patient's area of concern. Reviewed, dictated and finalized at [facility].
== END ==
PROVIDERS: PCP Pediatrics; Visit Provider Pediatrics
DX: S43.432A Superior glenoid labrum lesion of left shoulder, initial encounter (principal); X58.XXXA Exposure to other specified factors, initial encounter; M19.012 Primary osteoarthritis, left shoulder
CPT/HCPCS: 73223; A9577

== ENCOUNTER 2022-08-11 08:04 | Inpatient (IN) | payer BC, SELFPAY ==
[2022-08-11] VITALS (17 sets, daily range): BP systolic 110–138; BP diastolic 66–87; PULSE 58–92; RESP 12–18; TEMP 36.1–37.9; O2SAT 90–100
--- NOTE | ~2022-08-11 | XR_ITS ---
EXAMINATION: XR abdomen NG/feed tube insert DATE: 08/14/2022 08:52 INDICATION: Nasogastric tube placement TECHNIQUE: A supine view of the abdomen and lower chest was obtained for evaluation of feeding tube placement. COMPARISON: None. FINDINGS: Nasogastric tube tip in proximal side port in the body of the stomach. Multiple gas-filled but not li jailyn dilated loops of bowel in the abdomen and favor postoperative ileus over obstruction. Surgical d rain in the right lower quadrant. Mildly decreased lung volumes. Heart size is normal. IMPRESSION: 1. Nasogastric tube folded back upon itself in the stomach. Could consider withdrawal by 6 cm. 2. Likely postoperative ileus. Reviewed, dictated and finalized at location A. IMPRESSION: 1. Nasogastric tube folded back upon itself in the stomach. Could consider with drawal by 6 cm. 2. Likely postoperative ileus.
--- NOTE | ~2022-08-11 | XR_ITS ---
EXAM: XR abdomen NG/feed tube rechec DATE: 08/16/2022 22:13 HISTORY: NG repositioned; C/O worsening N/V/bloating . COMPARISON: Same date at 10:02 AM. FINDINGS: Bibasilar atelectasis. Possible cyst trace left pleural effusion. NG tube, tip and side po rt project over the stomach. Multiple loops of dilated small bowel in the upper abdomen, less distend ed than in the prior exam. IMPRESSION: NG tube, in good position. Decreasing small bowel dilation. Reviewed, dictated and finalized at location K.
--- NOTE | ~2022-08-11 | CT_ITS ---
EXAMINATION: CT abdomen pelvis w con DATE: 08/11/2022 09:12 INDICATION: Right lower quadrant tenderness TECHNIQUE: Computed tomography (CT) of the abdomen and pelvis was performed with 100 mL Omnipaque-350 intravenous contrast. Automated exposure control and iterative reconstruction technique were employe d. The dose-length product was 691.97 mGy-cm. COMPARISON: CT abdomen and pelvis dated 05/22/[address] dated 09/20/2021 FINDINGS: Scattered chronic linear bands of atelectasis/scarring with interval improvement in some of the assoc iated patchy groundglass opacities with appearance and prior history suggesting this may represent se quela of chronic COVID pneumonia. Heart size is normal. No pericardial or pleural effusion. No signif icant change in a 2.5 cm hemangioma in segment 7 of the liver with characteristic peripheral disconti guous puddling of contrast. There is a smaller 1.5 cm lesion along the ligamentum teres which is like ly benign given the lack of interval change most likely representing a second hemangioma but differen tial would include focal fat or focal nodular hyperplasia. Gallbladder, spleen, pancreas, bilateral a drenal glands and kidneys are normal. There are few calcified appendicoliths within the appendix whic h is fluid-filled and dilated to 1.3 cm distal to the proximal most appendicolith. There is surroundi ng inflammatory stranding and multiple small foci of extraluminal gas in the surrounding fat consiste nt with ruptured appendicitis. Small amount of gas and fluid tracks cephalad in the fat anterior to t he inferior vena cava to the inferior margin of the third portion the duodenum. No organized abscess. Marked enlargement of the prostate which measures 7.4 x 5.9 x 5.9 cm. Bladder is unremarkable. No pa thologically enlarged abdominal or pelvic lymphadenopathy. Postoperative change of prior umbilical an d left inguinal hernia repairs. A few scattered chronic sclerotic bone islands the largest near the r ight iliac crest. IMPRESSION: 1. Ruptured acute appendicitis. Dr. Thomas discussed these findings with Dr. Torres at 9:35 AM. 2. Slight improvement in lung disease in the visualized lower lungs most likely chronic scarring rela huseyin to prior COVID pneumonia. 3. Marked prostatomegaly. Reviewed, dictated and finalized at location B. IMPRESSION: 1. Ruptured acute appendicitis. Dr. Thomas discussed these findings with Dr. Torres at 9:35 AM. 2. Slight improvement in lung disease in the visualized lower lungs most likely chronic scarring related to prior COVID pneumonia. 3. Marked prostatomegaly.
--- NOTE | ~2022-08-11 | XR_ITS ---
EXAMINATION: XR abdomen/kub 1V DATE: 08/16/2022 10:09 INDICATION: Nasogastric tube placement TECHNIQUE: A supine view of the abdomen was obtained. COMPARISON: 08/14/2022 FINDINGS: The gastric tube tip in proximal side port in the body of the stomach. Surgical drain in the right ab domen. Persistent gas-filled but not frankly dilated loops of large and small bowel suggestive of an ileus postoperative change of likely prior left inguinal hernia repair. A few sclerotic bone islands in the right hemipelvis. IMPRESSION: 1. Nasogastric tube in the stomach. 2. Gas-filled but not frankly dilated small bowel most likely persistent postoperative ileus. Reviewed, dictated and finalized at location A. IMPRESSION: 1. Nasogastric tube in the stomach. 2. Gas-filled but not frankly dilated small bowel most likely persistent postop erative ileus.
--- NOTE | ~2022-08-11 | XR_ITS ---
EXAMINATION: XR abdomen NG/feed tube rechec DATE: 08/14/2022 11:26 INDICATION: Nasogastric tube adjustment. TECHNIQUE: A supine view of the abdomen on 2 radiographs was obtained. COMPARISON: Abdomen radiograph at 8:43 AM FINDINGS: The lower abdomen is excluded. There are dilated loops of small bowel. A surgical drain is noted. The nasogastric tube tip is in the stomach. IMPRESSION: 1. Nasogastric tube tip in the stomach. 2. Dilated small bowel, likely postoperative adynamic ileus. Reviewed, dictated and finalized at location A.
[2022-08-11] MEDS: MORPHINE SULFATE (*CRX) 4 MG/ML INJ IV PUSH (08:32)
[2022-08-11] MEDS: ONDANSETRON INJ 4 MG/2 ML VIAL IV PUSH (08:32)
[2022-08-11] MEDS: SODIUM CHLORIDE 0.9% IV 1,000 ML 999 ML IV CONT (08:32)
[2022-08-11 08:37] LABS: Basophils Percent Auto 0.2 % (0.2-1.2); Eosinophils Percent Auto 0.1 % (0-4.4); Hematocrit 43.9 % (42.0-52.0); Hemoglobin 15.2 g/dL (14.0-18.0); Immature Granulocyte Absolute 0.32 K/mm3 (0.00-0.031); Immature Granulocyte Percent A 1.6 % (0-0.5); Lymphocytes Absolute Auto 1.03 K/mm3 (0.9-3.2); Lymphocytes Percent Auto 5.2 % (18.3-44.2); Mean Corpuscular HGB Conc 34.6 g/dl (32-36); Mean Corpuscular Hemoglobin 32.1 pg (26-34); Mean Corpuscular Volume 92.8 fl (80-100); Monocytes Absolute Auto 1.5 K/mm3 (0.1-0.6); Monocytes Percent Auto 7.8 % (2.6-8.5); Neutrophils Absolute Auto 16.8 K/mm3 (1.3-6.7); Neutrophils Percent Auto 85.1 % (45.5-73.1); Platelet Count Result 231 k/mm3 (150-375); Red Blood Count 4.73 M/mm3 (4.6-6.20); Red Cell Distribution Width 12.6 % (11.5-14.5); White Blood Count 19.7 K/mm3 (4.5-10.0)
[2022-08-11 08:50] LABS: Alanine Aminotransferase 45 U/L (6-50); Albumin Level 4.1 g/dL (3.5-5.1); Alkaline Phosphatase 101 U/L (38-126); Anion Gap 7 mmol/L (8-16); Aspartate Amino Transferase 45 U/L (17-59); Bilirubin,Total 0.9 mg/dL (0.2-1.3); Blood Urea Nitrogen 14 mg/dL (9-20); Calcium 9.3 mg/dL (8.4-10.2); Carbon Dioxide 29 mmol/L (22-30); Chloride 102 mmol/L (98-107); Estimated CRCL calculation 56 ml/min; Estimated Glomerular Filt Rate > 60; Glucose 125 mg/dL (65-110); Lipase 55 U/L (23-300); Potassium 3.5 mmol/L (3.4-5.0); Sodium 138 mmol/L (137-145)
[2022-08-11 09:02] LABS: Add Urine Microscopic? YES; Appearance Urine Clear (Clear); Bacteria Urine None Seen /hpf; Bilirubin Urine 1+ (Negative); Blood Urine 1+ (Negative); Color Urine Dark Yellow (Yellow); Glucose Urine UA Negative (Negative); Ketones Urine Trace mg/dL (Negative); Leukocyte Esterase Ur Negative LEU/UL (Negative); Mucus Urine Present /lpf; Nitrate Urine Negative (Negative); Protein Urine 3+ mg/dL (Negative); Specific Grav Ur 1.034 (1.001-1.035); Squamous Epithelial Cell Urine Occasional /hpf (Few); WBC Urine 0-5 /hpf; pH Urine 6.5 (5.0-9.0)
[2022-08-11] MEDS: HYDROmorphone HCL INJ (*CRX) 1 MG/ML SYR 0.5 MG IV PUSH (10:17)
--- NOTE | 2022-08-11 10:33 | ED.ABDPAIN ---
HPI - Abdominal Pain General Chief Complaint: Abdominal Pain Stated Complaint: abd pain Time Seen by Provider: 08/11/22 08:10 History of Present Illness HPI narrative: Patient is a 62-year-old male who presents ER with abdominal pain. Lower and worsening over the last 3 days. No fevers or chills or sweats. Pain is worse with any type of movement. He last had a bowel movement yesterday and it was 1 episode of diarrhea. Denies fevers or chills or sweats. Reports several weeks ago he been started on antibiotic for a dental issue and is unsure if that is related. Related Data Home Medications Medication Instructions Recorded Confirmed ascorbate calcium (vitamin C) 500 1,000 mg PO DAILY 04/20/20 08/11/22 mg tablet famotidine 20 mg tablet (Pepcid) 20 mg PO BID 04/20/20 08/11/22 omega-3 fatty acids 1,000 mg 1,000 mg PO DAILY 04/20/20 08/11/22 capsule (Fish Oil Concentrate) cholecalciferol (vitamin D3) 50 100 mcg PO DAILY 04/28/20 08/11/22 mcg (2,000 unit) tablet (Vitamin D3) aspirin 81 mg tablet 325 mg PO DAILY 05/22/20 08/11/22 Allergies Allergy/AdvReac Type Severity Reaction Status Date / Time Penicillins Allergy Unknown Hives Verified 08/11/22 18:21 Review of Systems Review of Systems: All systems reviewed & are unremarkable except as noted in HPI and below Constitutional: Constitutional: Denies chills, Denies fatigue and Denies fever(s) ENT: Denies nasal congestion and Denies sore throat Cardiovascular: Cardiovascular: Denies chest pain, Denies rapid heart rate and Denies radiating jaw, neck or arm pain Respiratory: Respiratory: Denies cough and Denies dyspnea Gastrointestinal: Gastrointestinal: Reports abdominal pain, Reports bloating, Reports diarrhea, Denies nausea and Denies vomiting Genitourinary: Genitourinary: Denies dysuria and Denies urinary frequency PMFSH Past Medical History Medical History GERD (gastroesophageal reflux disease) Surgical History Surgical History H/O umbilical hernia repair History of inguinal hernia repair, bilateral History of tonsillectomy Family History Family History Grandparent Diabetes mellitus Other Carcinoma of colon Social History Social History Smoking status: Never smoker Alcohol intake: current Drinks per week: 0 Alcohol use details: social Substance use: never Substance use type: does not use Last use: drinks very rarely Lack of Transportation: No Lack of Food: Never True Current Housing: I Have Housing Concerned About Future Housing: No Difficulty Paying Gas/Electric Bills: No Difficulty Paying for Meds: No Currently Unemployed: No Education: Decline to Answer Difficulty w/ Childcare or Family Care: No Living arrangements: with family Occupation/Education: occupation Additional occupation/education comments: [employer] Gender identity (if verbalized by the patient): Male Spiritual care concerns: No Exam Narrative: GENERAL: Well-appearing, well-nourished, and in no acute distress. HEAD: Normocephalic, atraumatic. EYES: PERRL and EOMI. ENT:Mucous membranes moist. CHEST: Clear to auscultation. No respiratory distress. HEART: Regular rate and rhythm. Normal peripheral pulses. ABDOMEN: Soft, palpation bilateral lower quadrants with increased guarding on the right lower quadrant, nondistended, normal active bowel sounds. EXTREMITIES: Normal range of motion. No edema. SKIN: Warm, dry, no rash. NEURO: Alert and oriented x3. PSYCH: Normal mood and affect. Course Course Emergency Course: Patient aware of diagnosis and treatment plan. Patient excepted by Dr. Dickinson's service and he will go to the OR as well. N.p.o. at this time. Minimal improvement in pain with morphine so switched to D
[2022-08-11] MEDS: metroNIDAZOLE 500 MG/ISO 100ML 500 MG/100 ML BAG 100 MG IVPB ×2 (10:40→19:21)
[2022-08-11] MEDS: SODIUM CHLORIDE 0.9% IV 1,000 ML 125 ML IV CONT (11:28)
--- NOTE | 2022-08-11 11:57 | WPDANESEPPF ---
Anes - Initial Pre Proc Eval Procedure: Operation Date: 08/11/22 17:00 Proposed Procedures p Laparoscopic Appendectomy - Maged Dickinson MD Date/Time: 08/11/22 11:57 Pre Op Diagnosis: abd pain Patient Data Age: 62 Gender: M Height: 1.68 m Weight: 73.4 kg Last Vital Signs Temp 36.7 C 08/11/22 08:05 Pulse 75 08/11/22 11:21 Resp 17 08/11/22 11:21 BP 116/78 08/11/22 11:21 Pulse Ox 99 08/11/22 11:27 O2 Del Method Nasal Cannula 08/11/22 11:27 O2 Flow Rate 2 08/11/22 11:27 Allergies Allergy/AdvReac Type Severity Reaction Status Date / Time Penicillins Allergy Unknown Hives Verified 08/11/22 08:04 Home Medications Medication Instructions Recorded Confirmed Type ascorbate calcium (vitamin C) 500 1,000 mg PO DAILY 04/20/20 06/15/20 History mg tablet famotidine 20 mg tablet (Pepcid) 20 mg PO BID 04/20/20 06/15/20 History omega-3 fatty acids 1,000 mg 1,000 mg PO DAILY 04/20/20 06/15/20 History capsule (Fish Oil Concentrate) calcium 500 mg tablet 500 mg PO DAILY 04/28/20 06/15/20 History cholecalciferol (vitamin D3) 50 100 mcg PO DAILY 04/28/20 06/15/20 History mcg (2,000 unit) tablet (Vitamin D3) aspirin 81 mg tablet 81 mg PO DAILY 05/22/20 06/15/20 History Laboratory Tests 08/11/22 08:25 WBC 19.7 H K/mm3 (4.5-10.0) RBC 4.73 M/mm3 (4.6-6.20) Hgb 15.2 g/dL (14.0-18.0) Hct 43.9 % (42.0-52.0) MCV 92.8 fl (80-100) MCH 32.1 pg (26-34) MCHC 34.6 g/dl (32-36) RDW 12.6 % (11.5-14.5) Plt Count 231 k/mm3 (150-375) MPV 10.0 fl (7.4-10.4) Immature Gran % (Auto) 1.6 H % (0-0.5) Neut % (Auto) 85.1 H % (45.5-73.1) Lymph % (Auto) 5.2 L % (18.3-44.2) [place] % (Auto) 7.8 % (2.6-8.5) Eos % (Auto) 0.1 % (0-4.4) Baso % (Auto) 0.2 % (0.2-1.2) Lymph # (Auto) 1.03 K/mm3 (0.9-3.2) [place] # (Auto) 1.5 H K/mm3 (0.1-0.6) Eos # (Auto) 0.0 K/mm3 (0-0.3) Baso # (Auto) 0.0 K/mm3 (0.0-0.1) Abs Immat Gran (auto) 0.32 H K/mm3 (0.00-0.031) Absolute Neuts (auto) 16.8 H K/mm3 (1.3-6.7) Absolute Nucleated RBC 0.0 K/mm3 (0.0-0.012) Nucleated RBC % 0.0 % (0.0-0.2) Sodium 138 mmol/L (137-145) Potassium 3.5 mmol/L (3.4-5.0) Chloride 102 mmol/L (98-107) Carbon Dioxide 29 mmol/L (22-30) Anion Gap 7 L mmol/L (8-16) BUN 14 mg/dL (9-20) Creatinine 1.10 mg/dL (0.7-1.3) Estim Creat Clear Calc 56 ml/min Estimated GFR > 60 (59 - ) Glucose 125 H mg/dL (65-110) Calcium 9.3 mg/dL (8.4-10.2) Total Bilirubin 0.9 mg/dL (0.2-1.3) AST 45 U/L (17-59) ALT 45 U/L (6-50) Alkaline Phosphatase 101 U/L (38-126) Total Protein 7.0 g/dL (6.3-8.2) Albumin 4.1 g/dL (3.5-5.1) Lipase 55 U/L (23-300) Urine Color Dark yellow (Yellow) Urine Appearance Clear (Clear) Urine pH 6.5 (5.0-9.0) Ur Specific [place] 1.034 (1.001-1.035) Urine Protein 3+ H mg/dL (Negative) Urine Glucose (UA) Negative mg/dL (Negative) Urine Ketones Trace H mg/dL (Negative) Ur Blood (Man) 1+ H (Negative) Urine Nitrate Negative (Negative) Urine Bilirubin 1+ H (Negative) Urine Urobilinogen 1.0 mg/dL (<2.0) Leukocyte Esterase Rfl Negative JURGEN/UL (Negative) Urine RBC 6-10 H /hpf (0-2) Urine WBC 0-5 /hpf Ur Squamous Epith Cells Occasional /hpf (Few) Urine Bacteria None seen /hpf Urine Casts 3-5 Urine Mucus Present /lpf Patient hx anesthesia problems: none Family hx anesthesia problems: none Results Review: All pre-operative results and documents have been reviewed as part of the pre-operative evaluation. [facility] Past Medical History Medical History GERD (gastroesophageal reflux disease) Surgical History Surgical History (Reviewed 06/15/20 @ 10:2
--- NOTE | 2022-08-11 12:23 | PM.IMHP ---
H&P: HPI History of Present Illness Date/Time: 08/11/22 12:23 Chief Complaint: Abdominal pain Narrative: Patient is a 62-year-old man whom I know from previous umbilical hernia repair with mesh. He began having abdominal pain 3 days ago and also experience some vomiting. The pain is diffuse but worse in the right lower quadrant. He came to the emergency room. He was afebrile but had some tachycardia. His white blood cell count was over 19,000. CT scan of the abdomen and pelvis showed acute appendicitis with perforation and several small pockets of free intraperitoneal air in the area of the appendix. He is admitted now for IV antibiotics and further management. Review of Systems Review of Systems: All systems reviewed & are unremarkable except as noted in HPI and below (HPI and those items noted below) Constitutional: Constitutional: Denies chills and Denies fever(s) Cardiovascular: Cardiovascular: Denies chest pain, Denies diaphoresis, Denies dyspnea and Denies paroxysmal nocturnal dyspnea Respiratory: Respiratory: Denies chest congestion, Denies cough and Denies dyspnea Gastrointestinal: Gastrointestinal: Reports as per HPI, Reports abdominal pain, Reports GI cramping and Reports vomiting Integumentary/Breasts: Skin/Breast: Denies lesions and Denies rash PMFSH Past Medical History Medical History GERD (gastroesophageal reflux disease) Surgical History Surgical History H/O umbilical hernia repair History of inguinal hernia repair, bilateral History of tonsillectomy Family History Family History Grandparent Diabetes mellitus Other Carcinoma of colon Social History Social History Smoking status: Never smoker Alcohol intake: current Drinks per week: 0 Alcohol use details: social Substance use: never Substance use type: does not use Last use: drinks very rarely Living arrangements: with family Occupation/Education: occupation Additional occupation/education comments: [employer] Gender identity (if verbalized by the patient): Male Spiritual care concerns: No Meds Home Medications and Allergies Home Medications Medication Instructions Recorded Confirmed Type ascorbate calcium (vitamin C) 500 1,000 mg PO DAILY 04/20/20 06/15/20 History mg tablet famotidine 20 mg tablet (Pepcid) 20 mg PO BID 04/20/20 06/15/20 History omega-3 fatty acids 1,000 mg 1,000 mg PO DAILY 04/20/20 06/15/20 History capsule (Fish Oil Concentrate) calcium 500 mg tablet 500 mg PO DAILY 04/28/20 06/15/20 History cholecalciferol (vitamin D3) 50 100 mcg PO DAILY 04/28/20 06/15/20 History mcg (2,000 unit) tablet (Vitamin D3) aspirin 81 mg tablet 81 mg PO DAILY 05/22/20 06/15/20 History Allergies Allergy/AdvReac Type Severity Reaction Status Date / Time Penicillins Allergy Unknown Hives Verified 08/11/22 12:37 Vital Signs Vital Signs - 24 hr 08/11/22 08:05 08/11/22 08:41 08/11/22 11:21 Temperature 36.7 C Pulse Rate 92 75 75 Respiratory Rate 16 12 17 Blood Pressure 129/87 121/86 116/78 Pulse Oximetry 98 97 93 Oxygen Delivery Room Air Oxygen Flow Rate 08/11/22 11:27 08/11/22 11:27 Temperature Pulse Rate Respiratory Rate Blood Pressure Pulse Oximetry 90 99 Oxygen Delivery Room Air Nasal Cannula Oxygen Flow Rate 2 Exam Const: General: cooperative, comfortable, no acute distress, alert and awake Nutritional Appearance: thin Orientation/consciousness: patient oriented x3 and No confusion HENMT: Head: normocephalic and atraumatic Mouth: Yes Normal oral and palatal mucosa present Eyes: Conjunctivae: conjunctivae normal Pupils: Equal, round and reactive pupils present EOM: EOMs intact bilaterally Neck: Neck: normal visual inspection, no lymp
--- NOTE | 2022-08-11 12:31 | WPDHPUPDATE1 ---
History and Physical Update Update Date/Time: 08/11/22 12:31 History and Physical has been reviewed, including an updated exam of the patient. There are NO changes in the patient's condition. Risks, benefits, and alternatives have been discussed and questions answered. Patient agrees to proceed with procedure.
[2022-08-11] MEDS: LACTATED RINGERS 1,000 ML 30 ML IV CONT ×2 (12:33→14:53)
[2022-08-11] MEDS: BUPIVACAINE/EPINEPHRINE 0.5% 50 ML VIAL 30 ML INFILTRATE (14:37)
--- NOTE | 2022-08-11 14:57 | W.PM.PROC2 ---
Procedure Note - Detailed Date of Procedure 08/11/22 Pre-op Diagnosis Ruptured appendicitis with generalized peritonitis Post-op Diagnosis Same Procedure Performed Laparoscopic appendectomy for ruptured appendicitis for Surgeon Maged Dickinson MD Pin Chaser Dennise Jack [facility] Anesthesia General and Local (0.5% Marcaine with epinephrine) Indications Patient presented with a 3 day history of abdominal pain worse in the right lower quadrant and associated with vomiting. He was seen in the emergency room and had peritonitis with leukocytosis. CT scan showed evidence of ruptured appendicitis with some free intraperitoneal air in the area of the appendix. He had some abdominal distension and small-bowel dilatation as well. He is taken to surgery now for laparoscopic appendectomy for ruptured appendicitis. Findings Patient did have ruptured appendicitis. More than 1 opening in the wall of the appendix was noted. There was some small fecaliths that were carefully removed. The wall the appendix had been disrupted significantly and had to be taken out in pieces. The cecum was retroperitoneal at the appendiceal orifice and there was intense inflammation and fibrotic change associated with this making dissection much more difficult. The small bowel was also distended and thickened from the inflammatory process which made exposure additionally difficult. Blood loss was 75 cc which is at least 3 times more than usual. We had to place an extra 5 mm port in the right upper quadrant so that we could use more retraction in the area of the appendix. A surgical drain was placed in the right upper quadrant following the surgery anticipating peritoneal contamination from the ruptured appendicitis. The surgery lasted over an hour which is 3 times longer than usual for this type of procedure. Description of Procedure Patient was taken to surgery and induced into general anesthesia. The abdomen is prepped and draped. Trocars were placed in the usual fashion starting in the left upper quadrant with a 5 mm applied Medical optical trocar. Local was infiltrated prior to each of the incisions. The initial trocar was placed into the peritoneal cavity and insufflation was carried out. We placed the left mid abdominal 5 mm trocar and the left lower quadrant 10 11 trocar under direct visualization. Once the trocars were in place, we dissected omental adhesions from the umbilical hernia repair mesh. This went well. Cautery was used for hemostasis. Patient was placed in Trendelenburg with the right-side elevated. The distal into the appendix was found fairly easily taking down only some inflammatory adhesions. However, the mid portion and proximal portion of the appendix was located posterior and retroperitoneal as was the cecum. After trying to dissect out the appendix starting at the distal end, I abandoned that approach and placed a 5 mm trocar in the right upper quadrant. We moved the camera to this location and then used all the left-sided ports for retraction and dissection. I began by dividing the lateral peritoneal attachments to the cecum and proximal ascending colon. This allowed me to mobilize the colon and exposed the retroperitoneum. I followed the tenia and found the origin of the appendix. At about this point in time, I saw 2 fecaliths. Although I was trying to be very gentle with the appendix, there were several holes in the wall and it came apart in roughly 3 pieces. The fecaliths were removed. The into the appendix was removed as it was completely separate. These were removed in an Endo-Catch bag. We then continued the dissection and eventually found the origin of the appendix and its proximal aspect. This part of the dissection was quite difficult as the distal ileal mesentery was involved as was the retroperitoneum. There was more bleeding than usual. There was some bleeding from the mesoappendix. Cautery was used in quite a bit of suction. Eventual
--- NOTE | 2022-08-11 16:20 | ADMGEN ---
This patient, Zay Fisher, was admitted to Medical Room 349-01. Patient/family oriented to hospital policies and general routines including ID bracelet, bed and alarms, visiting hours, pain management, procedures, bathroom and other care routines, personal items, smoking policy, room service/diet, and visiting hours. Information on how to activate the Rapid Response Team has been discussed. Patient/Family are encouraged to report perceived risks to care and to ask questions if they do not understand what they are told or what they should do.
[2022-08-11] MEDS: LACTATED RINGERS 1,000 ML 125 ML IV CONT (17:23)
[2022-08-11] MEDS: IBUPROFEN IV 800 MG/200 ML 800 MG/200 ML BAG 400 MG IVPB ×2 (17:24→21:46)
[2022-08-11] MEDS: HYDROcodone/acetaminophen (*CRX) 5-325 MG TABLET 1 TAB PO ×2 (17:36→21:46)
[2022-08-11] MEDS: FAMOTIDINE 20 MG/2 ML VIAL IV PUSH (21:47)
[2022-08-12] MEDS: LACTATED RINGERS 1,000 ML 125 ML IV CONT (04:25)
[2022-08-12] MEDS: metroNIDAZOLE 500 MG/ISO 100ML 500 MG/100 ML BAG 100 MG IVPB ×3 (04:25→19:57)
[2022-08-12 05:45] VITALS: BP 112/69; PULSE 71; RESP 19; TEMP 37; O2SAT 98
[2022-08-12 05:46] LABS: Basophils Percent Auto 0.2 % (0.2-1.2); Hematocrit 35.2 % (42.0-52.0); Hemoglobin 11.8 g/dL (14.0-18.0); Immature Granulocyte Absolute 0.15 K/mm3 (0.00-0.031); Lymphocytes Absolute Auto 0.73 K/mm3 (0.9-3.2); Lymphocytes Percent Auto 4.7 % (18.3-44.2); Mean Corpuscular HGB Conc 33.5 g/dl (32-36); Mean Corpuscular Hemoglobin 31.8 pg (26-34); Mean Corpuscular Volume 94.9 fl (80-100); Mean Platelet Volume 10.2 fl (7.4-10.4); Monocytes Absolute Auto 1.4 K/mm3 (0.1-0.6); Monocytes Percent Auto 8.9 % (2.6-8.5); Neutrophils Absolute Auto 13.2 K/mm3 (1.3-6.7); Neutrophils Percent Auto 85.2 % (45.5-73.1); Platelet Count Result 227 k/mm3 (150-375); Red Blood Count 3.71 M/mm3 (4.6-6.20); Red Cell Distribution Width 12.5 % (11.5-14.5); White Blood Count 15.5 K/mm3 (4.5-10.0)
[2022-08-12 06:00] LABS: Anion Gap 7 mmol/L (8-16); Blood Urea Nitrogen 14 mg/dL (9-20); Calcium 8.3 mg/dL (8.4-10.2); Carbon Dioxide 27 mmol/L (22-30); Chloride 105 mmol/L (98-107); Estimated CRCL calculation 61 ml/min; Estimated Glomerular Filt Rate > 60; Glucose 128 mg/dL (65-110); Potassium 3.8 mmol/L (3.4-5.0); Sodium 139 mmol/L (137-145)
[2022-08-12] MEDS: IBUPROFEN IV 800 MG/200 ML 800 MG/200 ML BAG 400 MG IVPB ×4 (06:30→21:11)
--- NOTE | 2022-08-12 07:00 | WPDANESPN ---
Anes - Prog Note Post-Op Date/Time: 08/12/22 07:00 Cardiovascular status: normal Respiratory status: normal Airway patency: baseline Mental status: baseline Post-Op hydration status: normal Vital Signs: Last Vital Signs Temp 37.0 C 08/12/22 05:45 Pulse 71 08/12/22 05:45 Resp 19 08/12/22 05:45 BP 112/69 08/12/22 05:45 Pulse Ox 98 08/12/22 05:45 O2 Del Method Nasal Cannula 08/11/22 20:00 O2 Flow Rate 2 08/11/22 20:00 Pain Score (VAS): 2 I/O: Intake & Output 08/11/22 08/11/22 08/12/22 15:59 23:59 07:59 Intake Total 4460 059 4941 Output Total 30 305 308 Balance 1120 545 692 Laboratory Tests 08/12/22 05:32 08/12/22 05:32 08/11/22 08/11/22 08/12/22 08:25 18:06 05:32 WBC 19.7 H 15.5 H RBC 4.73 3.71 L Hgb 15.2 11.8 L D Hct 43.9 35.2 L MCV 92.8 94.9 MCH 32.1 31.8 MCHC 34.6 33.5 RDW 12.6 12.5 Plt Count 231 227 MPV 10.0 10.2 Immature Gran % (Auto) 1.6 H 1.0 H Neut % (Auto) 85.1 H 85.2 H Lymph % (Auto) 5.2 L 4.7 L [place] % (Auto) 7.8 8.9 H Eos % (Auto) 0.1 0.0 Baso % (Auto) 0.2 0.2 Lymph # (Auto) 1.03 0.73 L [place] # (Auto) 1.5 H 1.4 H Eos # (Auto) 0.0 0.0 Baso # (Auto) 0.0 0.0 Abs Immat Gran (auto) 0.32 H 0.15 H Absolute Neuts (auto) 16.8 H 13.2 H Absolute Nucleated RBC 0.0 0.0 Nucleated RBC % 0.0 0.0 Sodium 138 139 Potassium 3.5 3.8 Chloride 102 105 Carbon Dioxide 29 27 Anion Gap 7 L 7 L BUN 14 14 Creatinine 1.10 1.00 Estim Creat Clear Calc 56 61 Estimated GFR > 60 > 60 Glucose 125 H 128 H Calcium 9.3 8.3 L Total Bilirubin 0.9 AST 45 ALT 45 Alkaline Phosphatase 101 Total Protein 7.0 Albumin 4.1 Lipase 55 Urine Color Dark yellow Urine Appearance Clear Urine pH 6.5 Ur Specific [place] 1.034 Urine Protein 3+ H Urine Glucose (UA) Negative Urine Ketones Trace H Ur Blood (Man) 1+ H Urine Nitrate Negative Urine Bilirubin 1+ H Urine Urobilinogen 1.0 Leukocyte Esterase Rfl Negative Urine RBC 6-10 H Urine WBC 0-5 Ur Squamous Epith Cells Occasional Urine Bacteria None seen Urine Casts 3-5 Urine Mucus Present Blood Type O Positive Antibody Screen Negative Post-procedural complaints: none Patient Feedback: Patient satisfied with anesthetic care.
[2022-08-12] MEDS: ENOXAPARIN 40 MG/0.4 ML SYRINGE SUB-Q (08:17)
[2022-08-12] MEDS: FAMOTIDINE 20 MG/2 ML VIAL IV PUSH ×2 (08:19→20:18)
[2022-08-12 08:20] VITALS: O2SAT 94
--- NOTE | 2022-08-12 11:42 | PM.PNGS ---
Progress Note: A&P Assessment and Plan (1) Acute appendicitis with perforation, generalized peritonitis, and gangrene: Qualifiers: Appendicitis abscess presence: without abscess Qualified Code(s): K35.20 - Acute appendicitis with generalized peritonitis, without abscess Code(s): K35.20 - Acute appendicitis with generalized peritonitis, without abscess Status: Acute Assessment and Plan: Advanced to full liquids. Ambulate. Continue IV antibiotics. Recheck labs and exam again tomorrow. Doing well so far. Subjective Subjective Date/Time Seen: 08/12/22 11:42 Post Op day: 1 Patient reports: feels better, pain is less, tolerating liquids well, no flatus, no bowel movement and afebrile Exam Const: General: comfortable and no acute distress Orientation/consciousness: patient oriented x3 GI: Inspection: non-distended and incision (Dry and intact, serous ALIYA drainage) GI Palp: Yes Soft to palpation, Yes Tenderness to palpation present (GI), No Guarding due to palpation present (GI) and No Rebound tenderness present Auscultation: absent bowel sounds Neuro: General: patient oriented x3 and no focal motor deficits Extrem: General: no calf tenderness and no edema Psych: Affect: normal affect Insight: Good insight present (Psych) Judgement: Good judgement present (Psych) Objective Data Vital Signs Vital Signs: Vital Signs - 24 hr 08/11/22 12:28 08/11/22 14:53 08/11/22 15:20 Temperature 37.9 C H 37.0 C Pulse Rate 77 90 86 Respiratory Rate 14 18 14 Blood Pressure 115/72 135/77 130/81 Pulse Oximetry 100 100 100 Oxygen Delivery Nasal Cannula Simple Face Mask Simple Face Mask Oxygen Flow Rate 2 6 6 08/11/22 15:05 08/11/22 15:35 08/11/22 15:50 Temperature Pulse Rate 87 84 83 Respiratory Rate 16 14 14 Blood Pressure 128/87 117/78 124/84 Pulse Oximetry 100 100 97 Oxygen Delivery Simple Face Mask Room Air Nasal Cannula Oxygen Flow Rate 6 2 08/11/22 16:15 08/11/22 16:30 08/11/22 17:00 Temperature 36.6 C 36.4 C 36.6 C Pulse Rate 78 76 77 Respiratory Rate 18 18 18 Blood Pressure 121/79 130/74 130/80 Pulse Oximetry 95 96 97 Oxygen Delivery Oxygen Flow Rate 08/11/22 18:00 08/11/22 20:25 08/11/22 20:00 Temperature 36.6 C 36.1 C L Pulse Rate 84 78 Respiratory Rate 18 18 Blood Pressure 138/86 120/77 Pulse Oximetry 96 98 98 Oxygen Delivery Nasal Cannula Oxygen Flow Rate 2 08/11/22 23:20 08/12/22 05:45 Temperature 36.1 C L 37.0 C Pulse Rate 58 L 71 Respiratory Rate 18 19 Blood Pressure 110/66 112/69 Pulse Oximetry 96 98 Oxygen Delivery Oxygen Flow Rate Intake/Output Intake/Output: Intake & Output 08/09/22 08/10/22 08/11/22 08/12/22 23:59 23:59 23:59 23:59 Intake Total 2000 1300 Output Total 335 308 Balance 1665 992 Meds/Results Medications: Active Medications Generic Name Dose Route Start Last Admin Trade Name Freq PRN Reason Stop Dose Admin Acetaminophen 500 mg 08/11/22 16:00 Acetaminophen 500 Mg Tablet PO Q6H PRN Mild Pain (1-3) or Fever Hydrocodone Bitart/Acetaminophen 1 tab 08/11/22 16:00 08/11/22 21:46 Hydrocodone/Acetaminophen (*Crx) 5-325 Mg Tablet PO 1 tab Q4H PRN Administration Pain Rated 4-6 Hydrocodone Bitart/Acetaminophen 1 tab 08/11/22 16:00 Hydrocodone/Acetaminophen (*Crx) 10-325 Mg Tablet PO Q4H PRN Pain Rated 7-10 Enoxaparin Sodium 40 mg 08/12/22 09:00 08/12/22 08:17 Enoxaparin 40 Mg/0.4 Ml Syringe SUB-Q 40 mg DAILY [facility] Administration Famotidine 20 mg 08/11/22 21:00 08/12/22 08:19 Famotidine 20 Mg/2 Ml Vial IV PUSH 20 mg Q12HR [facility] Administration Lactated Ringer's 1,000 mls @ 125 mls/hr 08/11/22 16:00 08/12/22 04:25 Lr - Lactated Ringers Iv IV CONT 125 mls/hr .Q8H [facility] Administration Ibuprofen 800 mg in 200 mls @ 400 mls/hr 08/11/22 16:00 08/12/22 10:38 Caldolor 800 Mg/200 Ml IVPB 400 mls/hr Q6H [facility]ON Administr
[2022-08-12 13:45] VITALS: BP 124/85; PULSE 70; RESP 20; TEMP 37.1; O2SAT 99
[2022-08-12] MEDS: LACTATED RINGERS 1,000 ML 80 ML IV CONT (17:45)
[2022-08-12] MEDS: HYDROcodone/acetaminophen (*CRX) 10-325 MG TABLET 1 TAB PO (17:56)
[2022-08-12 20:47] VITALS: BP 111/70; PULSE 58; RESP 20; TEMP 37; O2SAT 91
[2022-08-13] MEDS: HYDROcodone/acetaminophen (*CRX) 10-325 MG TABLET 1 TAB PO ×2 (00:31→19:27)
[2022-08-13] MEDS: metroNIDAZOLE 500 MG/ISO 100ML 500 MG/100 ML BAG 100 MG IVPB ×3 (02:09→18:19)
[2022-08-13] MEDS: IBUPROFEN IV 800 MG/200 ML 800 MG/200 ML BAG 400 MG IVPB ×4 (03:13→21:18)
[2022-08-13 05:38] VITALS: BP 128/81; PULSE 66; RESP 18; O2SAT 94
[2022-08-13 05:46] LABS: Hemoglobin 11.3 g/dL (14.0-18.0); Mean Corpuscular HGB Conc 33.2 g/dl (32-36); Mean Corpuscular Hemoglobin 31.9 pg (26-34); Mean Platelet Volume 9.8 fl (7.4-10.4); Platelet Count Result 208 k/mm3 (150-375); Red Blood Count 3.54 M/mm3 (4.6-6.20); Red Cell Distribution Width 12.9 % (11.5-14.5); White Blood Count 10.6 K/mm3 (4.5-10.0)
[2022-08-13 05:55] LABS: Anion Gap 4 mmol/L (8-16); Blood Urea Nitrogen 14 mg/dL (9-20); Calcium 8.1 mg/dL (8.4-10.2); Carbon Dioxide 30 mmol/L (22-30); Chloride 104 mmol/L (98-107); Estimated CRCL calculation 61 ml/min; Estimated Glomerular Filt Rate > 60; Glucose 96 mg/dL (65-110); Potassium 3.3 mmol/L (3.4-5.0); Sodium 138 mmol/L (137-145)
[2022-08-13 09:00] VITALS: PULSE 71; RESP 18; O2SAT 98
[2022-08-13] MEDS: HYDROcodone/acetaminophen (*CRX) 5-325 MG TABLET 1 TAB PO ×2 (09:01→14:14)
[2022-08-13] MEDS: FAMOTIDINE 20 MG/2 ML VIAL IV PUSH ×2 (09:02→19:27)
[2022-08-13] MEDS: ENOXAPARIN 40 MG/0.4 ML SYRINGE SUB-Q (09:02)
[2022-08-13] MEDS: LACTATED RINGERS 1,000 ML 80 ML IV CONT (13:00)
[2022-08-13 14:00] VITALS: BP 137/94; PULSE 71; RESP 18; TEMP 36.8; O2SAT 98
[2022-08-13] MEDS: KCL 40 MEQ/D5/0.9% SOD CHL 1,000 ML 80 ML IV CONT (15:19)
--- NOTE | 2022-08-13 15:28 | PM.PNGS ---
Progress Note: A&P Assessment and Plan (1) Acute appendicitis with perforation, generalized peritonitis, and gangrene: Qualifiers: Appendicitis abscess presence: without abscess Qualified Code(s): K35.20 - Acute appendicitis with generalized peritonitis, without abscess Code(s): K35.20 - Acute appendicitis with generalized peritonitis, without abscess Status: Acute Assessment and Plan: looks like ileus has developed. Advised to minimize oral intake, increase ambulation. Hopefully will pass soon. Potassium added IVF. Subjective Subjective Date/Time Seen: 08/13/22 15:28 Post Op day: 2 Patient reports: pain is less, no flatus, no bowel movement, afebrile and other (so bloated he is unable to eat) Interval history: No nausea or heartburn. Feels bloated, distended. Exam Const: General: comfortable, no acute distress, alert and awake Orientation/consciousness: patient oriented x3 GI: Inspection: distended, incision (healing) and other (serous ALIYA fluid) GI Palp: Yes Firmness to palpation present (GI), Yes Tenderness to palpation present (GI), No Guarding due to palpation present (GI) and No Rebound tenderness present Auscultation: normal bowel sounds and absent bowel sounds Neuro: General: patient oriented x3 and no focal motor deficits Extrem: General: no calf tenderness and no edema Psych: Affect: normal affect Insight: Good insight present (Psych) Judgement: Good judgement present (Psych) Objective Data Vital Signs Vital Signs: Vital Signs - 24 hr 08/12/22 20:47 08/13/22 05:38 Temperature 37.0 C Pulse Rate 58 L 66 Respiratory Rate 20 18 Blood Pressure 111/70 128/81 Pulse Oximetry 91 94 Intake/Output Intake/Output: Intake & Output 08/10/22 08/11/22 08/12/22 08/13/22 23:59 23:59 23:59 23:59 Intake Total 2050 3100 1740 Output Total 335 368 440 Balance 1715 2732 1300 Meds/Results Medications: Active Medications Generic Name Dose Route Start Last Admin Trade Name Freq PRN Reason Stop Dose Admin Acetaminophen 500 mg 08/11/22 16:00 Acetaminophen 500 Mg Tablet PO Q6H PRN Mild Pain (1-3) or Fever Hydrocodone Bitart/Acetaminophen 1 tab 08/11/22 16:00 08/13/22 14:14 Hydrocodone/Acetaminophen (*Crx) 5-325 Mg Tablet PO 1 tab Q4H PRN Administration Pain Rated 4-6 Hydrocodone Bitart/Acetaminophen 1 tab 08/11/22 16:00 08/13/22 00:31 Hydrocodone/Acetaminophen (*Crx) 10-325 Mg Tablet PO 1 tab Q4H PRN Administration Pain Rated 7-10 Enoxaparin Sodium 40 mg 08/12/22 09:00 08/13/22 09:02 Enoxaparin 40 Mg/0.4 Ml Syringe SUB-Q 40 mg DAILY [place] Administration Famotidine 20 mg 08/11/22 21:00 08/13/22 09:02 Famotidine 20 Mg/2 Ml Vial IV PUSH 20 mg Q12HR [facility] Administration Ibuprofen 800 mg in 200 mls @ 400 mls/hr 08/11/22 16:00 08/13/22 15:18 Caldolor 800 Mg/200 Ml IVPB 400 mls/hr Q6H [facility] Administration Ceftriaxone Sodium 1 gm in 50 mls @ 100 mls/hr 08/11/22 18:00 08/12/22 17:45 Rocephin 1 Gm/Ns 50 Ml IVPB 100 mls/hr Q24H [facility] Administration Metronidazole 500 mg in 100 mls @ 100 mls/hr 08/11/22 19:00 08/13/22 10:09 Flagyl 500 Mg/Iso Soln 100 Ml IVPB 100 mls/hr Q8H [facility] Administration Potassium Chloride/Dextrose/Sod Cl 1,000 mls @ 80 mls/hr 08/13/22 14:30 08/13/22 15:19 Kcl 40 Meq/D5ns IV CONT 80 mls/hr .[id number] [facility] Administration Morphine Sulfate 2 mg 08/11/22 16:00 Morphine Sulfate (*Crx) 2 Mg/Ml Inj IV PUSH Q2H PRN Pain Rated 4-6 Morphine Sulfate 4 mg 08/11/22 16:00 Morphine Sulfate (*Crx) 4 Mg/Ml Inj IV PUSH Q2H PRN Pain Rated 7-10 Naloxone HCl 0.1 mg 08/11/22 16:00 Naloxone Hcl 0.4 Mg/Ml Vial IV PUSH Q2M PRN Opiate Reversal Ondansetron HCl 4 mg 08/11/22 16:00 Ondansetron Inj 4 Mg/2 Ml Vial IV PUSH Q4H PRN Nausea And Vomiting Radiology Results: ITS Impressions Abdomen/Pelvis CT 08/11/
[2022-08-13 21:28] VITALS: BP 137/72; PULSE 63; RESP 20; TEMP 36.9; O2SAT 96
[2022-08-14] MEDS: HYDROcodone/acetaminophen (*CRX) 10-325 MG TABLET 1 TAB PO (00:16)
[2022-08-14] MEDS: metroNIDAZOLE 500 MG/ISO 100ML 500 MG/100 ML BAG 100 MG IVPB ×3 (02:15→19:59)
[2022-08-14] MEDS: IBUPROFEN IV 800 MG/200 ML 800 MG/200 ML BAG 400 MG IVPB (03:31)
[2022-08-14 05:43] LABS: Hematocrit 34.2 % (42.0-52.0); Hemoglobin 11.7 g/dL (14.0-18.0); Mean Corpuscular HGB Conc 34.2 g/dl (32-36); Mean Corpuscular Hemoglobin 32.4 pg (26-34); Mean Corpuscular Volume 94.7 fl (80-100); Mean Platelet Volume 9.6 fl (7.4-10.4); Platelet Count Result 222 k/mm3 (150-375); Red Blood Count 3.61 M/mm3 (4.6-6.20); Red Cell Distribution Width 12.5 % (11.5-14.5); White Blood Count 11.4 K/mm3 (4.5-10.0)
[2022-08-14 05:47] VITALS: BP 136/82; PULSE 71; RESP 20; TEMP 37; O2SAT 95
[2022-08-14] MEDS: HYDROcodone/acetaminophen (*CRX) 5-325 MG TABLET 1 TAB PO (05:53)
[2022-08-14 05:54] LABS: Anion Gap 3 mmol/L (8-16); Blood Urea Nitrogen 13 mg/dL (9-20); Calcium 7.8 mg/dL (8.4-10.2); Carbon Dioxide 28 mmol/L (22-30); Chloride 106 mmol/L (98-107); Estimated CRCL calculation 67 ml/min; Estimated Glomerular Filt Rate > 60; Glucose 110 mg/dL (65-110); Potassium 3.7 mmol/L (3.4-5.0); Sodium 137 mmol/L (137-145)
[2022-08-14] MEDS: ONDANSETRON INJ 4 MG/2 ML VIAL IV PUSH ×2 (05:57→20:35)
--- NOTE | 2022-08-14 08:06 | PM.PNGS ---
Progress Note: A&P Assessment and Plan (1) Acute appendicitis with perforation, generalized peritonitis, and gangrene: Qualifiers: Appendicitis abscess presence: without abscess Qualified Code(s): K35.20 - Acute appendicitis with generalized peritonitis, without abscess Code(s): K35.20 - Acute appendicitis with generalized peritonitis, without abscess Status: Acute Assessment and Plan: Has developed adynamic ileus, now with vomiting and more distension. Will make NPO and place NG tube. Continue IV fluids. Increase ambulation. Subjective Subjective Date/Time Seen: 08/14/22 08:06 Post Op day: 3 Patient reports: pain is less, no flatus, no bowel movement, nausea and vomiting Exam GI: Inspection: distended and incision (Healing, ALIYA serous) GI Palp: Yes Firmness to palpation present (GI), Yes Tenderness to palpation present (GI) and No Guarding due to palpation present (GI) Auscultation: absent bowel sounds Objective Data Vital Signs Vital Signs: Vital Signs - 24 hr 08/13/22 14:00 08/13/22 09:00 08/13/22 21:28 Temperature 36.8 C 36.9 C Pulse Rate 71 71 63 Respiratory Rate 18 18 20 Blood Pressure 137/94 H 137/72 Pulse Oximetry 98 98 96 Oxygen Delivery Room Air 08/14/22 05:47 Temperature 37.0 C Pulse Rate 71 Respiratory Rate 20 Blood Pressure 136/82 Pulse Oximetry 95 Oxygen Delivery Intake/Output Intake/Output: Intake & Output 08/11/22 08/12/22 08/13/22 08/14/22 23:59 23:59 23:59 23:59 Intake Total 2050 3150 2390 300 Output Total 335 368 440 40 Balance 1715 2782 1950 260 Meds/Results Medications: Active Medications Generic Name Dose Route Start Last Admin Trade Name Freq PRN Reason Stop Dose Admin Acetaminophen 500 mg 08/11/22 16:00 Acetaminophen 500 Mg Tablet PO Q6H PRN Mild Pain (1-3) or Fever Hydrocodone Bitart/Acetaminophen 1 tab 08/11/22 16:00 08/14/22 05:53 Hydrocodone/Acetaminophen (*Crx) 5-325 Mg Tablet PO 1 tab Q4H PRN Administration Pain Rated 4-6 Hydrocodone Bitart/Acetaminophen 1 tab 08/11/22 16:00 08/14/22 00:16 Hydrocodone/Acetaminophen (*Crx) 10-325 Mg Tablet PO 1 tab Q4H PRN Administration Pain Rated 7-10 Enoxaparin Sodium 40 mg 08/12/22 09:00 08/13/22 09:02 Enoxaparin 40 Mg/0.4 Ml Syringe SUB-Q 40 mg DAILY [place] Administration Famotidine 20 mg 08/11/22 21:00 08/13/22 19:27 Famotidine 20 Mg/2 Ml Vial IV PUSH 20 mg Q12HR [facility] Administration Ibuprofen 800 mg in 200 mls @ 400 mls/hr 08/11/22 16:00 08/14/22 04:01 Caldolor 800 Mg/200 Ml IVPB Infused Q6H [facility] Infusion Ceftriaxone Sodium 1 gm in 50 mls @ 100 mls/hr 08/11/22 18:00 08/13/22 18:00 Rocephin 1 Gm/Ns 50 Ml IVPB Infused Q24H [facility] Infusion Metronidazole 500 mg in 100 mls @ 100 mls/hr 08/11/22 19:00 08/14/22 03:15 Flagyl 500 Mg/Iso Soln 100 Ml IVPB Infused Q8H [facility] Infusion Potassium Chloride/Dextrose/Sod Cl 1,000 mls @ 80 mls/hr 08/13/22 14:30 08/13/22 15:19 Kcl 40 Meq/D5ns IV CONT 80 mls/hr .[id number] [facility] Administration Morphine Sulfate 2 mg 08/11/22 16:00 Morphine Sulfate (*Crx) 2 Mg/Ml Inj IV PUSH Q2H PRN Pain Rated 4-6 Morphine Sulfate 4 mg 08/11/22 16:00 Morphine Sulfate (*Crx) 4 Mg/Ml Inj IV PUSH Q2H PRN Pain Rated 7-10 Naloxone HCl 0.1 mg 08/11/22 16:00 Naloxone Hcl 0.4 Mg/Ml Vial IV PUSH Q2M PRN Opiate Reversal Ondansetron HCl 4 mg 08/11/22 16:00 08/14/22 05:57 Ondansetron Inj 4 Mg/2 Ml Vial IV PUSH 4 mg Q4H PRN Administration Nausea And Vomiting Radiology Results: ITS Impressions Abdomen/Pelvis CT 08/11/22 09:16 IMPRESSION: 1. Ruptured acute appendicitis. Dr. Thomas discussed these findings with Dr. Torres at 9:35 AM. 2. Slight improvement in lung disease in the visualized lower lungs most likely chronic scarring related to prior COVID pneumonia. 3. Marked prostatomegaly. Labs
[2022-08-14 09:30] VITALS: PULSE 70; RESP 16; O2SAT 96
[2022-08-14] MEDS: ENOXAPARIN 40 MG/0.4 ML SYRINGE SUB-Q (10:17)
[2022-08-14] MEDS: KCL 40 MEQ/D5/0.9% SOD CHL 1,000 ML 80 ML IV CONT (10:17)
[2022-08-14] MEDS: FAMOTIDINE 20 MG/2 ML VIAL IV PUSH ×2 (10:18→19:59)
[2022-08-14 14:08] VITALS: BP 140/85; PULSE 70; RESP 16; TEMP 36.4; O2SAT 96
[2022-08-14 21:39] VITALS: BP 139/90; PULSE 76; RESP 16; TEMP 36.6; O2SAT 96
[2022-08-15] MEDS: KCL 40 MEQ/D5/0.9% SOD CHL 1,000 ML 80 ML IV CONT (01:34)
[2022-08-15] MEDS: metroNIDAZOLE 500 MG/ISO 100ML 500 MG/100 ML BAG 100 MG IVPB ×3 (02:08→19:54)
[2022-08-15 05:56] VITALS: BP 144/90; PULSE 73; RESP 16; TEMP 36.9; O2SAT 96
[2022-08-15 06:10] LABS: Hematocrit 37.6 % (42.0-52.0); Hemoglobin 12.8 g/dL (14.0-18.0); Mean Corpuscular Hemoglobin 32.1 pg (26-34); Mean Corpuscular Volume 94.2 fl (80-100); Mean Platelet Volume 9.7 fl (7.4-10.4); Platelet Count Result 279 k/mm3 (150-375); Red Blood Count 3.99 M/mm3 (4.6-6.20); Red Cell Distribution Width 12.2 % (11.5-14.5); White Blood Count 12.8 K/mm3 (4.5-10.0)
[2022-08-15 06:22] LABS: Anion Gap 6 mmol/L (8-16); Blood Urea Nitrogen 11 mg/dL (9-20); Calcium 8.1 mg/dL (8.4-10.2); Carbon Dioxide 29 mmol/L (22-30); Chloride 102 mmol/L (98-107); Estimated CRCL calculation 67 ml/min; Estimated Glomerular Filt Rate > 60; Glucose 124 mg/dL (65-110); Sodium 137 mmol/L (137-145)
--- NOTE | 2022-08-15 07:17 | PM.PNGS ---
Progress Note: A&P Assessment and Plan (1) Acute appendicitis with perforation, generalized peritonitis, and gangrene: Qualifiers: Appendicitis abscess presence: without abscess Qualified Code(s): K35.20 - Acute appendicitis with generalized peritonitis, without abscess Code(s): K35.20 - Acute appendicitis with generalized peritonitis, without abscess Status: Acute Assessment and Plan: Postop day 4. Status post laparoscopic appendectomy. ALIYA drain has serous output. No evidence of persistent infection. Main problem as a dynamic ileus and now on able to eat. Please see below. Will place PICC line and start TPN. (2) Adynamic ileus: Code(s): K56.0 - Paralytic ileus Status: Acute Assessment and Plan: Nasogastric tube in good position. Still no bowel sounds or bowel movement. Continue NG suction, NPO and IV fluids with starting TPN today. (3) Protein-calorie malnutrition, moderate: Code(s): E44.0 - Moderate protein-calorie malnutrition Status: Acute Assessment and Plan: Place PICC line and start TPN Subjective Subjective Date/Time Seen: 08/15/22 07:17 Post Op day: 4 Patient reports: no new complaints, pain is less (Still feels very distended and bloated), no flatus, no bowel movement and afebrile Review of Systems Review of Systems: All systems reviewed & are unremarkable except as noted in HPI and below (HPI and those items noted below) Constitutional: Constitutional: Denies chills and Denies fever(s) Cardiovascular: Cardiovascular: Denies chest pain, Denies diaphoresis, Denies dyspnea and Denies paroxysmal nocturnal dyspnea Respiratory: Respiratory: Denies chest congestion, Denies cough and Denies dyspnea Integumentary/Breasts: Skin/Breast: Denies lesions and Denies rash Exam Const: General: comfortable and no acute distress Orientation/consciousness: patient oriented x3 GI: Inspection: distended, incision (Healing well) and other (ALIYA serous) GI Palp: Yes Firmness to palpation present (GI), No Tenderness to palpation present (GI), No Guarding due to palpation present (GI) and No Rebound tenderness present Auscultation: absent bowel sounds Neuro: General: patient oriented x3 and no focal motor deficits Extrem: General: no calf tenderness and no edema Psych: Affect: normal affect Insight: Good insight present (Psych) Judgement: Good judgement present (Psych) Objective Data Vital Signs Vital Signs: Vital Signs - 24 hr 08/14/22 14:08 08/14/22 09:30 08/14/22 21:39 Temperature 36.4 C L 36.6 C Pulse Rate 70 70 76 Respiratory Rate 16 16 16 Blood Pressure 140/85 139/90 Pulse Oximetry 96 96 96 Oxygen Delivery Room Air 08/15/22 05:56 Temperature 36.9 C Pulse Rate 73 Respiratory Rate 16 Blood Pressure 144/90 H Pulse Oximetry 96 Oxygen Delivery Intake/Output Intake/Output: Intake & Output 08/12/22 08/13/22 08/14/22 08/15/22 23:59 23:59 23:59 23:59 Intake Total 3150 2390 1500 1100 Output Total 368 263 246 8077 Balance 2782 1880 1230 25 Meds/Results Medications: Active Medications Generic Name Dose Route Start Last Admin Trade Name Freq PRN Reason Stop Dose Admin Acetaminophen 500 mg 08/11/22 16:00 Acetaminophen 500 Mg Tablet PO Q6H PRN Mild Pain (1-3) or Fever Hydrocodone Bitart/Acetaminophen 1 tab 08/11/22 16:00 08/14/22 05:53 Hydrocodone/Acetaminophen (*Crx) 5-325 Mg Tablet PO 1 tab Q4H PRN Administration Pain Rated 4-6 Hydrocodone Bitart/Acetaminophen 1 tab 08/11/22 16:00 08/14/22 00:16 Hydrocodone/Acetaminophen (*Crx) 10-325 Mg Tablet PO 1 tab Q4H PRN Administration Pain Rated 7-10 Enoxaparin Sodium 40 mg 08/12/22 09:00 08/14/22 10:17 Enoxaparin 40 Mg/0.4 Ml Syringe SUB-Q 40 mg DAILY [place] Administration Famotidine 20 mg 08/11/22 21:00 08/14/22 19:59 Famotidine 20 Mg/2 Ml Vial IV PUSH 20 mg Q12HR [facility] Administration Ceftriaxone Sod
[2022-08-15 08:06] LABS: Basophils Absolute Auto 0.1 K/mm3 (0.0-0.1); Basophils Percent Auto 0.5 % (0.2-1.2); Eosinophils Absolute Auto 0.3 K/mm3 (0-0.3); Eosinophils Percent Auto 2.4 % (0-4.4); Hematocrit 37.2 % (42.0-52.0); Hemoglobin 12.8 g/dL (14.0-18.0); Immature Granulocyte Percent A 2.3 % (0-0.5); Lymphocytes Absolute Auto 1.69 K/mm3 (0.9-3.2); Lymphocytes Percent Auto 13.1 % (18.3-44.2); Mean Corpuscular HGB Conc 34.4 g/dl (32-36); Mean Corpuscular Hemoglobin 32.2 pg (26-34); Mean Corpuscular Volume 93.5 fl (80-100); Mean Platelet Volume 9.6 fl (7.4-10.4); Monocytes Absolute Auto 1.2 K/mm3 (0.1-0.6); Neutrophils Absolute Auto 9.3 K/mm3 (1.3-6.7); Neutrophils Percent Auto 72.7 % (45.5-73.1); Platelet Count Result 304 k/mm3 (150-375); Red Blood Count 3.98 M/mm3 (4.6-6.20); Red Cell Distribution Width 12.3 % (11.5-14.5); White Blood Count 12.9 K/mm3 (4.5-10.0)
[2022-08-15] MEDS: FAMOTIDINE 20 MG/2 ML VIAL IV PUSH ×2 (08:15→19:58)
[2022-08-15] MEDS: ENOXAPARIN 40 MG/0.4 ML SYRINGE SUB-Q (08:15)
[2022-08-15] MEDS: ONDANSETRON INJ 4 MG/2 ML VIAL IV PUSH (08:15)
[2022-08-15 08:19] LABS: Partial Thromboplastin Time 30.8 SECONDS (22.3-36.8)
[2022-08-15 08:20] LABS: Alanine Aminotransferase 101 U/L (6-50); Albumin Level 3.1 g/dL (3.5-5.1); Alkaline Phosphatase 80 U/L (38-126); Anion Gap 6 mmol/L (8-16); Aspartate Amino Transferase 121 U/L (17-59); Bilirubin,Total 0.4 mg/dL (0.2-1.3); Blood Urea Nitrogen 11 mg/dL (9-20); Calcium 8.1 mg/dL (8.4-10.2); Carbon Dioxide 28 mmol/L (22-30); Chloride 103 mmol/L (98-107); Estimated CRCL calculation 75 ml/min; Estimated Glomerular Filt Rate > 60; Glucose 127 mg/dL (65-110); Sodium 137 mmol/L (137-145)
[2022-08-15 08:27] LABS: Transferrin 95 mg/dL (206-381)
[2022-08-15 08:52] VITALS: BMI 26.3
[2022-08-15] MEDS: LIDOCAINE HCL 1% PF INJ 5 ML VIAL INFILTRATE (09:30)
[2022-08-15 10:36] VITALS: BMI 26.3
[2022-08-15] MEDS: FAT EMULSIONS IV 20% 250 ML 20.83 ML IVPB (11:02)
[2022-08-15] MEDS: AMINO ACIDS 5%/D15W/E-LYTES/CA 2,000 ML with MULTIVITAMINS-12 INJ VIAL 1 2.5 ML, MULTIV... 40 ML IV CONT (11:02)
[2022-08-15 12:17] LABS: Glucose Point of Care 132 mg/dl (65-105)
[2022-08-15 14:00] VITALS: BP 140/81; PULSE 65; RESP 20; TEMP 37; O2SAT 98
[2022-08-15 16:54] LABS: Glucose Point of Care 140 mg/dl (65-105)
[2022-08-15 20:17] VITALS: BP 134/90; PULSE 73; RESP 19; TEMP 36.9; O2SAT 94
[2022-08-16] MEDS: metroNIDAZOLE 500 MG/ISO 100ML 500 MG/100 ML BAG 100 MG IVPB ×3 (03:00→20:07)
[2022-08-16] MEDS: ONDANSETRON INJ 4 MG/2 ML VIAL IV PUSH ×3 (06:25→21:59)
--- NOTE | 2022-08-16 06:59 | PC.NURSE ---
Paper documentation exists on this patient due to [employer] downtime on 08/15/22 2200 from to [08/16/22 0600] .
[2022-08-16] MEDS: ENOXAPARIN 40 MG/0.4 ML SYRINGE SUB-Q (08:23)
[2022-08-16] MEDS: FAMOTIDINE 20 MG/2 ML VIAL IV PUSH ×2 (08:23→20:08)
[2022-08-16 08:28] LABS: Glucose Point of Care 138 mg/dl (65-105)
[2022-08-16 09:45] LABS: Hematocrit 37.6 % (42.0-52.0); Hemoglobin 12.8 g/dL (14.0-18.0); Mean Corpuscular Hemoglobin 32.2 pg (26-34); Mean Corpuscular Volume 94.5 fl (80-100); Mean Platelet Volume 9.9 fl (7.4-10.4); Platelet Count Result 334 k/mm3 (150-375); Red Blood Count 3.98 M/mm3 (4.6-6.20); Red Cell Distribution Width 12.2 % (11.5-14.5); White Blood Count 11.9 K/mm3 (4.5-10.0)
--- NOTE | 2022-08-16 09:49 | PM.PNGS ---
Progress Note: A&P Assessment and Plan (1) Acute appendicitis with perforation, generalized peritonitis, and gangrene: Qualifiers: Appendicitis abscess presence: without abscess Qualified Code(s): K35.20 - Acute appendicitis with generalized peritonitis, without abscess Code(s): K35.20 - Acute appendicitis with generalized peritonitis, without abscess Status: Acute Assessment and Plan: continue IV antibiotics. DC ALIYA drain as there is no output yesterday or since midnight. Continue ambulation. Await return bowel function. Stop antibiotics after 7 days treatment. (2) Adynamic ileus: Code(s): K56.0 - Paralytic ileus Status: Acute Assessment and Plan: Check a KUB regarding NG position as well as bowel distension. May need to advance it. Continue NPO and NG tube as still distended with no bowel sounds despite having some small bowel movements. (3) Protein-calorie malnutrition, moderate: Code(s): E44.0 - Moderate protein-calorie malnutrition Status: Acute Assessment and Plan: Continue TPN. Up rate to 60 per hour. Subjective Subjective Date/Time Seen: 08/16/22 09:49 Post Op day: 5 Patient reports: pain is less, flatus, bowel movement ( Tiny hard pellets.), afebrile and other ( Feels like NG tube may have gotten pulled back to far. Feels it is irritating back of his throat now) Review of Systems Review of Systems: All systems reviewed & are unremarkable except as noted in HPI and below ( HPI) Exam Const: General: comfortable and no acute distress Orientation/consciousness: patient oriented x3 GI: Inspection: distended, incision ( healing, serous ALIYA output) and other ( NG tube does look like it is not in far enough) GI Palp: Yes Soft to palpation, Yes Tenderness to palpation present (GI) ( minimal tenderness), No Guarding due to palpation present (GI) and No Rebound tenderness present Auscultation: absent bowel sounds Neuro: General: patient oriented x3 and no focal motor deficits Extrem: General: no calf tenderness and no edema Psych: Affect: normal affect Insight: Good insight present (Psych) Judgement: Good judgement present (Psych) Objective Data Vital Signs Vital Signs: Vital Signs - 24 hr 08/15/22 14:00 08/15/22 20:17 08/15/22 21:00 Temperature 37.0 C 36.9 C Pulse Rate 65 73 Respiratory Rate 20 19 Blood Pressure 140/81 134/90 Pulse Oximetry 98 94 Oxygen Delivery Room Air Intake/Output Intake/Output: Intake & Output 08/13/22 08/14/22 08/15/22 08/16/22 23:59 23:59 23:59 23:59 Intake Total 2390 1550 1550 100 Output Total 100 958 7854 2200 Balance 1880 1280 125 -2100 Meds/Results Medications: Active Medications Generic Name Dose Route Start Last Admin Trade Name Freq PRN Reason Stop Dose Admin Acetaminophen 500 mg 08/11/22 16:00 Acetaminophen 500 Mg Tablet PO Q6H PRN Mild Pain (1-3) or Fever Hydrocodone Bitart/Acetaminophen 1 tab 08/11/22 16:00 08/14/22 05:53 Hydrocodone/Acetaminophen (*Crx) 5-325 Mg Tablet PO 1 tab Q4H PRN Administration Pain Rated 4-6 Hydrocodone Bitart/Acetaminophen 1 tab 08/11/22 16:00 08/14/22 00:16 Hydrocodone/Acetaminophen (*Crx) 10-325 Mg Tablet PO 1 tab Q4H PRN Administration Pain Rated 7-10 Dextrose 12.5 gm 08/15/22 07:22 Dextrose 50% 25 Gm/50 Ml Syringe IV PUSH PRN PRN Hypoglycemia Protocol Enoxaparin Sodium 40 mg 08/12/22 09:00 08/16/22 08:23 Enoxaparin 40 Mg/0.4 Ml Syringe SUB-Q 40 mg DAILY ALLYSON Administration Famotidine 20 mg 08/11/22 21:00 08/16/22 08:23 Famotidine 20 Mg/2 Ml Vial IV PUSH 20 mg Q12HR ALLYSON Administration Glucagon 1 mg 08/15/22 07:22 Glucagon For Inj 1 Mg Vial IM PRN PRN Hypoglycemia Protocol Ceftriaxone Sodium 1 gm in 50 mls @ 100 mls/hr 08/11/22 18:00 08/15/22 17:24 Rocephin 1 Gm/Ns 50 Ml IVPB 100 mls/hr Q24H ALLYSON Administrati
[2022-08-16] MEDS: AMINO ACIDS 5%/D15W/E-LYTES/CA 2,000 ML with MULTIVITAMINS-12 INJ VIAL 1 2.5 ML, MULTIV... 60 ML IV CONT (10:04)
[2022-08-16] MEDS: FAT EMULSIONS IV 20% 250 ML 20.83 ML IVPB (10:04)
[2022-08-16 11:24] LABS: Anion Gap 3 mmol/L (8-16); Blood Urea Nitrogen 11 mg/dL (9-20); Calcium 8.2 mg/dL (8.4-10.2); Carbon Dioxide 32 mmol/L (22-30); Chloride 102 mmol/L (98-107); Estimated CRCL calculation 85 ml/min; Estimated Glomerular Filt Rate > 60; Glucose 125 mg/dL (65-110); Phosphorus 3.5 mg/dL (2.5-4.5); Potassium 3.6 mmol/L (3.4-5.0); Sodium 137 mmol/L (137-145); Triglycerides 115 mg/dL (<150)
[2022-08-16 12:22] LABS: Glucose Point of Care 146 mg/dl (65-105)
[2022-08-16 14:00] VITALS: BP 135/91; PULSE 77; RESP 16; TEMP 37; O2SAT 98
[2022-08-16] MEDS: CENTRAL LINE FLUSH 10 ML IV PUSH ×2 (14:11→20:08)
[2022-08-16 17:20] LABS: Glucose Point of Care 140 mg/dl (65-105)
[2022-08-16] MEDS: IBUPROFEN IV 800 MG/200 ML 800 MG/200 ML BAG 400 MG IVPB (18:37)
[2022-08-16 21:45] VITALS: BP 133/82; PULSE 63; RESP 18; TEMP 36.6; O2SAT 96
--- NOTE | 2022-08-16 22:05 | PC.NURSE ---
Pt called c/o worsening bloating and nausea. NG suction and depth unchanged at time of symptom onset. Manual suction unsuccessful, attempted to flush with 20cc free water which severely worsed nausea and pt developed dry heaving at this time. Suction/NG connector changed and canister changed with no improvement also with no improvement. NG repositioned and advanced 2cm, Xray ordered to confirm placement.
[2022-08-17 00:40] LABS: Glucose Point of Care 140 mg/dl (65-105)
[2022-08-17] MEDS: metroNIDAZOLE 500 MG/ISO 100ML 500 MG/100 ML BAG 100 MG IVPB ×3 (02:20→19:57)
[2022-08-17] MEDS: ONDANSETRON INJ 4 MG/2 ML VIAL IV PUSH ×4 (02:23→18:16)
[2022-08-17] MEDS: CENTRAL LINE FLUSH 10 ML IV PUSH ×3 (04:53→20:01)
[2022-08-17 05:12] LABS: Basophils Absolute Auto 0.1 K/mm3 (0.0-0.1); Basophils Percent Auto 0.5 % (0.2-1.2); Eosinophils Absolute Auto 0.4 K/mm3 (0-0.3); Eosinophils Percent Auto 3.2 % (0-4.4); Hemoglobin 12.7 g/dL (14.0-18.0); Immature Granulocyte Absolute 0.31 K/mm3 (0.00-0.031); Immature Granulocyte Percent A 2.5 % (0-0.5); Lymphocytes Absolute Auto 1.94 K/mm3 (0.9-3.2); Lymphocytes Percent Auto 15.4 % (18.3-44.2); Mean Corpuscular HGB Conc 34.3 g/dl (32-36); Mean Corpuscular Hemoglobin 32.1 pg (26-34); Mean Corpuscular Volume 93.4 fl (80-100); Mean Platelet Volume 9.5 fl (7.4-10.4); Monocytes Absolute Auto 1.1 K/mm3 (0.1-0.6); Monocytes Percent Auto 9.1 % (2.6-8.5); Neutrophils Absolute Auto 8.7 K/mm3 (1.3-6.7); Neutrophils Percent Auto 69.3 % (45.5-73.1); Platelet Count Result 345 k/mm3 (150-375); Red Blood Count 3.96 M/mm3 (4.6-6.20); White Blood Count 12.6 K/mm3 (4.5-10.0)
[2022-08-17 05:22] LABS: Alanine Aminotransferase 181 U/L (6-50); Albumin Level 3.2 g/dL (3.5-5.1); Alkaline Phosphatase 75 U/L (38-126); Anion Gap 3 mmol/L (8-16); Aspartate Amino Transferase 108 U/L (17-59); Bilirubin,Total 0.5 mg/dL (0.2-1.3); Blood Urea Nitrogen 12 mg/dL (9-20); Calcium 8.4 mg/dL (8.4-10.2); Carbon Dioxide 32 mmol/L (22-30); Chloride 104 mmol/L (98-107); Estimated CRCL calculation 67 ml/min; Estimated Glomerular Filt Rate > 60; Glucose 105 mg/dL (65-110); Magnesium 2.2 mg/dL (1.6-2.3); Phosphorus 3.8 mg/dL (2.5-4.5); Potassium 3.6 mmol/L (3.4-5.0); Sodium 139 mmol/L (137-145)
[2022-08-17 06:00] VITALS: BP 127/62; PULSE 71; RESP 18; TEMP 36.6; O2SAT 96
[2022-08-17 06:23] LABS: Glucose Point of Care 139 mg/dl (65-105)
--- NOTE | 2022-08-17 07:23 | PM.PNGS ---
Progress Note: A&P Assessment and Plan (1) Acute appendicitis with perforation, generalized peritonitis, and gangrene: Qualifiers: Appendicitis abscess presence: without abscess Qualified Code(s): K35.20 - Acute appendicitis with generalized peritonitis, without abscess Code(s): K35.20 - Acute appendicitis with generalized peritonitis, without abscess Status: Acute Assessment and Plan: ALIYA removed yesterday. Continues to improve. Still on IV antibiotics postop day 6. (2) Adynamic ileus: Code(s): K56.0 - Paralytic ileus Status: Acute Assessment and Plan: Resolving. Has had a bowel movement again this morning and has good bowel sounds. Will DC NG tube and start full liquids. (3) Protein-calorie malnutrition, moderate: Code(s): E44.0 - Moderate protein-calorie malnutrition Status: Acute Assessment and Plan: Will cut back on Clinimix and discontinue later today. Restart if oral intake trial does not go well. Subjective Subjective Date/Time Seen: 08/17/22 07:23 Post Op day: #6 Patient reports: no new complaints, feels better, pain is less, flatus, bowel movement and afebrile Review of Systems Review of Systems: All systems reviewed & are unremarkable except as noted in HPI and below ( HPI) Exam Const: General: comfortable and no acute distress Orientation/consciousness: patient oriented x3 GI: Inspection: incision ( all are healing well, dressing over ALIYA site) GI Palp: Yes Soft to palpation, No Guarding due to palpation present (GI) and No Rebound tenderness present Auscultation: normal bowel sounds Neuro: General: patient oriented x3 and no focal motor deficits Extrem: General: no calf tenderness and no edema Psych: Affect: normal affect Insight: Good insight present (Psych) Judgement: Good judgement present (Psych) Objective Data Vital Signs Vital Signs: Vital Signs - 24 hr 08/16/22 08:00 08/16/22 14:00 08/16/22 21:45 Temperature 37.0 C 36.6 C Pulse Rate 77 63 Respiratory Rate 16 18 Blood Pressure 135/91 H 133/82 Pulse Oximetry 98 96 Oxygen Delivery Room Air 08/17/22 06:00 Temperature 36.6 C Pulse Rate 71 Respiratory Rate 18 Blood Pressure 127/62 Pulse Oximetry 96 Oxygen Delivery Intake/Output Intake/Output: Intake & Output 0508/15/22 08/16/22 08/17/22 23:59 23:59 23:59 23:59 Intake Total 1550 1600 3575 350 Output Total 270 1425 2765 1050 Balance 1280 175 810 -700 Meds/Results Medications: Active Medications Generic Name Dose Route Start Last Admin Trade Name Freq PRN Reason Stop Dose Admin Acetaminophen 500 mg 08/11/22 16:00 Acetaminophen 500 Mg Tablet PO Q6H PRN Mild Pain (1-3) or Fever Hydrocodone Bitart/Acetaminophen 1 tab 08/11/22 16:00 08/14/22 05:53 Hydrocodone/Acetaminophen (*Crx) 5-325 Mg Tablet PO 1 tab Q4H PRN Administration Pain Rated 4-6 Hydrocodone Bitart/Acetaminophen 1 tab 08/11/22 16:00 08/14/22 00:16 Hydrocodone/Acetaminophen (*Crx) 10-325 Mg Tablet PO 1 tab Q4H PRN Administration Pain Rated 7-10 Dextrose 12.5 gm 08/15/22 07:22 Dextrose 50% 25 Gm/50 Ml Syringe IV PUSH PRN PRN Hypoglycemia Protocol Enoxaparin Sodium 40 mg 08/12/22 09:00 08/16/22 08:23 Enoxaparin 40 Mg/0.4 Ml Syringe SUB-Q 40 mg DAILY [facility] Administration Glucagon 1 mg 08/15/22 07:22 Glucagon For Inj 1 Mg Vial IM PRN PRN Hypoglycemia Protocol Ceftriaxone Sodium 1 gm in 50 mls @ 100 mls/hr 08/11/22 18:00 08/16/22 18:11 Rocephin 1 Gm/Ns 50 Ml IVPB Infused Q24H [facility] Infusion Metronidazole 500 mg in 100 mls @ 100 mls/hr 08/11/22 19:00 08/17/22 03:20 Flagyl 500 Mg/Iso Soln 100 Ml IVPB Infused Q8H [facility] Infusion Ibuprofen 800 mg in 200 mls @ 400 mls/hr 08/14/22 08:05 08/16/22 19:07 Caldolor 800 Mg/200 Ml IVPB Infused Q6H PRN Infusion Pain Rated 1-3 Dextrose 1,000
[2022-08-17] MEDS: ENOXAPARIN 40 MG/0.4 ML SYRINGE SUB-Q (08:16)
[2022-08-17] MEDS: FAMOTIDINE 20 MG TABLET PO ×2 (08:17→20:00)
[2022-08-17 14:00] VITALS: BP 114/81; PULSE 79; RESP 18; TEMP 36.8; O2SAT 98
[2022-08-17] MEDS: IBUPROFEN IV 800 MG/200 ML 800 MG/200 ML BAG 400 MG IVPB (18:16)
--- NOTE | 2022-08-17 18:44 | PC.NURSE ---
RN called pharmacy twice about sending IV abx that were due at 1800. RN has still not received meds.
[2022-08-17 20:00] VITALS: PULSE 69; RESP 16; O2SAT 99
[2022-08-17 21:42] VITALS: BP 108/61; PULSE 69; RESP 16; TEMP 36.6; O2SAT 99
[2022-08-18] MEDS: metroNIDAZOLE 500 MG/ISO 100ML 500 MG/100 ML BAG 100 MG IVPB (03:13)
[2022-08-18] MEDS: CENTRAL LINE FLUSH 10 ML IV PUSH (03:16)
[2022-08-18 04:25] LABS: Hematocrit 32.4 % (42.0-52.0); Mean Corpuscular Hemoglobin 32.4 pg (26-34); Mean Corpuscular Volume 95.3 fl (80-100); Mean Platelet Volume 9.6 fl (7.4-10.4); Platelet Count Result 295 k/mm3 (150-375); Red Cell Distribution Width 12.3 % (11.5-14.5); White Blood Count 12.2 K/mm3 (4.5-10.0)
[2022-08-18 04:36] LABS: Anion Gap 1 mmol/L (8-16); Blood Urea Nitrogen 14 mg/dL (9-20); Calcium 7.9 mg/dL (8.4-10.2); Carbon Dioxide 31 mmol/L (22-30); Chloride 104 mmol/L (98-107); Estimated CRCL calculation 67 ml/min; Estimated Glomerular Filt Rate > 60; Glucose 93 mg/dL (65-110); Potassium 3.8 mmol/L (3.4-5.0); Sodium 136 mmol/L (137-145)
[2022-08-18 05:44] VITALS: BP 121/77; PULSE 80; RESP 18; TEMP 37.2; O2SAT 99
--- NOTE | 2022-08-18 08:10 | PM.DS ---
DS: Admitting Diagnosis Discharge Date 08/18/2022 Admitting Diagnosis ruptured appendicitis DS: Discharge Diagnosis Discharge Diagnosis (1) Acute appendicitis with perforation, generalized peritonitis, and gangrene: Qualifiers: Appendicitis abscess presence: without abscess Qualified Code(s): K35.20 - Acute appendicitis with generalized peritonitis, without abscess Code(s): K35.20 - Acute appendicitis with generalized peritonitis, without abscess Status: Acute (2) Adynamic ileus: Code(s): K56.0 - Paralytic ileus Status: Acute (3) Protein-calorie malnutrition, moderate: Code(s): E44.0 - Moderate protein-calorie malnutrition Status: Acute DS: Summary Hospital Course Hospital Course: patient came to the emergency room on 08/11/2022 with a 3 day history of diffuse abdominal pain that was now worse in the right lower quadrant. He also had a history of vomiting. I know him previously from an umbilical hernia repair with mesh[place] [address] in the emergency room and CT scan showed acute appendicitis with perforation. He was taken to surgery promptly on 08/11/2022. Laparoscopic appendectomy for ruptured appendicitis with generalized peritonitis was performed. He did have some dilated bowel but no free purulent fluid in the abdominal cavity. His appendectomy was difficult and the appendix was removed in pieces. A ALIYA drain was placed in the areas of dissection at the conclusion of the surgery. Pathology did confirm ruptured appendicitis but no evidence of appendiceal tumor. He was kept on IV antibiotics with ceftriaxone and metronidazole for a full 7 day course. He developed a severe adynamic ileus and had to have a nasogastric tube placed on postop day 3. The PICC line was also placed and Clinimix TPN with lipids was started as well. It took several days for his ileus to resolve. Eventually his nasogastric tube was able to be removed on 08/17/2022. He was having bowel movements and had good bowel function and bowel sounds. He tolerated full liquids well although he has had some early satiety and bloating for many weeks before his surgery and that was evident on 08/17/2022. He was eating adequate amounts and was comfortable with really no analgesics other than ibuprofen. He was able to be discharged on 08/18/2022. He completed a full 7 day course of IV antibiotics. His ALIYA drain was removed on 08/16/2022 as there was literally nothing coming out of it. He is in much improved condition at the time of discharge. Status at Discharge Functional status at discharge: independent ambulation Overall status at discharge: patient is progressing back to baseline Time Spent with Patient Time attestation: Total time spent providing and/or coordinating discharge services: Time spent: Less than 30 minutes DS: Data Data Completed and Pending Completed studies during hospitalization: Pending at discharge 08/11/22 14:07 Surgical [PTH] Routine Labs on day of discharge: Labs from last 24 hours 08/18/22 04:15 WBC 12.2 H RBC 3.40 L Hgb 11.0 L Hct 32.4 L MCV 95.3 MCH 32.4 MCHC 34.0 RDW 12.3 Plt Count 295 MPV 9.6 Sodium 136 L Potassium 3.8 Chloride 104 Carbon Dioxide 31 H Anion Gap 1 L BUN 14 Creatinine 0.90 Estim Creat Clear Calc 67 Estimated GFR > 60 Glucose 93 Calcium 7.9 L Discharge Plan Discharge Attending physician on discharge: Maged Dickinson Discharging Clinician: Maged Dickinson Anticipated Discharge Date/Time: 08/18/22 13:00 Patient Disposition: Home, Self-Care Activity: may shower, no straining and as tolerated Diet: regular Wound Care Instructions: remove dressing to shower Discharge Instructions: Ambulate 3-4 x per day and as tolerated. No lifting over 15-20lbs. May bathe or shower. Stairs are OK. May drive a car in 3 days. Will probably need a dressing over ALIYA drain site for t
[2022-08-18] MEDS: ENOXAPARIN 40 MG/0.4 ML SYRINGE SUB-Q (09:56)
[2022-08-18] MEDS: FAMOTIDINE 20 MG TABLET PO (09:56)
== END 2022-08-18 13:36 | disposition home or self-care (01) | DRG 342 ==
LOC: ANHED 11:48 → ANH3MED 16:46
PROVIDERS: Admitting Provider Surgery; Emergency Provider Emergency Medicine; PCP Pediatrics; Visit Provider Surgery
PROC: 0DTJ4ZZ Resection of Appendix, Percutaneous Endoscopic Approach (ICD-10-PCS; CPT 44970; principal; 2022-08-11 17:00)
DX: K35.20 Acute appendicitis with generalized peritonitis, without abscess (principal); E44.0 Moderate protein-calorie malnutrition; K56.0 Paralytic ileus; K38.1 Appendicular concretions; K21.9 Gastro-esophageal reflux disease without esophagitis; Z68.27 Body mass index [BMI] 27.0-27.9, adult; Z79.82 Long term (current) use of aspirin; Z88.0 Allergy status to penicillin
CPT/HCPCS: 36415; 36569; 74018; 74177; 80048; 80053; 81001; 82948; 83690; 83735; 84100; 84466; 84478; 85025; 85027; 85730; 86850; 86900; 86901; 88304; 96361; 96365; 96367; 96375; 99285; A9270; C1751; J0696; J1100; J1170; J1650; J1741; J2250; J2270; J2405; J2704; J2710; J3010; J3480; J7030; J7042; J7120; Q9967

== ENCOUNTER → 2023-03-09 11:35 | Outpatient (CLI) | payer BC, SELFPAY ==
--- NOTE | ~2023-03-09 | CT_ITS ---
EXAMINATION: CT lumbar spine wo con DATE: 03/09/2023 11:58 INDICATION: Acute bilateral low back pain. Right-sided sciatica. TECHNIQUE: Computed tomography (CT) of the lumbar spine was performed without intravenous contrast. A utomated exposure control and iterative reconstruction technique were employed. The dose-length produ ct was 462.82 mGy-cm. COMPARISON: None FINDINGS: Bone alignment is normal. Vertebral body heights are normal. There is mildly decreased disc height at L4-L5 and moderately decreased disc height at L5-S1. The following disc levels are specifi eulalia discussed: L1-L2: The disc does not extend beyond the endplate margin. There is mild bilateral facet joint osteo arthritis. There is no neural foraminal stenosis. There is no central canal stenosis. L2-L3: The disc is bulging. There is moderate right and mild left facet joint osteoarthritis. There i s mild bilateral neural foraminal stenosis. There is mild central canal stenosis. L3-L4: The disc is bulging. There is mild bilateral facet joint osteoarthritis. There is mild bilater al neural foraminal stenosis. There is mild central canal stenosis. L4-L5: The disc is bulging. There is moderate right and mild left facet joint osteoarthritis. There i s mild bilateral neural foraminal stenosis. There is mild central canal stenosis. L5-S1: The disc is bulging. There is mild bilateral facet joint osteoarthritis. There is mild bilater al neural foraminal stenosis. There is mild central canal stenosis. IMPRESSION: 1. Moderate lumbar spondylosis. Reviewed, dictated and finalized at location [facility]. [employer]
== END ==
PROVIDERS: Visit Provider Pediatrics
DX: M54.41 Lumbago with sciatica, right side (principal); M43.06 Spondylolysis, lumbar region; M47.896 Other spondylosis, lumbar region
CPT/HCPCS: 72131